=== PATIENT | male | born 1950 | race Caucasian/White ===

== ENCOUNTER 2019-06-02 09:17 | Outpatient (CLI) | payer MEDICARE, SELFPAY ==
[2019-06-02 13:17] LABS: Alanine Aminotransferase 15 U/L (4-50); Albumin Level 3.4 g/dL (3.5-5.1); Alkaline Phosphatase 54 U/L (38-126); Aspartate Amino Transferase 20 U/L (17-59); Bilirubin,Total 0.4 mg/dL (0.2-1.3); Blood Urea Nitrogen 24 mg/dL (9-20); Calcium 8.8 mg/dL (8.4-10.2); Carbon Dioxide 28 mmol/L (22-30); Chloride 102 mmol/L (98-107); Cholesterol 114 mg/dL (0-200); Estimated Glomerular Filt Rate 54; Glucose 92 mg/dL (75-110); HDL Direct 39 mg/dL; Potassium 4.8 mmol/L (3.4-5.0); Sodium 137 mmol/L (137-145); Triglycerides 48 mg/dL (<150)
[2019-06-02 13:18] LABS: Hemoglobin A1C 5.6 % (<5.7)
[2019-06-02 13:28] LABS: LDL Cholesterol Direct 62 mg/dL
== END 2019-06-02 09:18 | disposition home or self-care (01) ==
LOC: ANHWCLAB 09:26
PROVIDERS: PCP Family Medicine; Visit Provider Family Medicine
DX: I10 Essential (primary) hypertension (principal); R73.03 Prediabetes; E78.5 Hyperlipidemia, unspecified; E03.9 Hypothyroidism, unspecified
CPT/HCPCS: 36415; 80053; 80061; 83036; 84443

== ENCOUNTER 2019-12-10 09:55 | Outpatient (CLI) | payer MEDICARE, SELFPAY ==
--- NOTE | 2019-12-10 10:11 | ECHO_ITS ---
Patient Info Name: Bertrand Jacobs Age: 69 years : 1950 Gender: Male Ht: 74 in Wt: 315 lbs BSA: 2.79 m2 HR: 66 bpm BP: 162 / 85 mmHg Heart Rhythm: Sinus Rhythm Technical Quality: Fair Exam Date: 12/10/2019 10:20 AM Exam Location: [facility] Pulmonary Patient Status: Outpatient Admit Date: 12/10/2019 Staff Ordering Physician: Bridget Gamble NP Cut Out Machine Operator: Gil Rowell RDCS Attending Provider: Bridget Gamble NP Referring Physician: Mavis GAY; Exam Type: CA echo doppler color flow Study Info Indications R60.0 - Localized edema Complete two-dimensional, color flow and Doppler transthoracic echocardiogram is performed. History/Risk Factors Localized edema, palpitations, HTN. Summary 1. Complete two-dimensional, color flow and Doppler transthoracic echocardiogram is performed. 2. Left ventricular chamber dimension is normal. 3. Left ventricular systolic function is normal, estimated at 65-70%. 4. There is moderately increased left ventricular wall thickness. 5. The left ventricular diastolic function is grade I diastolic dysfunction. 6. E/e' 8 is minimally elevated. 7. There is mild aortic valve sclerosis. 8. There is trace tricuspid valve regurgitation. 9. No pulmonary hypertension, estimated pulmonary arterial systolic pressure is 30 mmHg. Left Ventricle E/e' 8 is minimally elevated. Left ventricular chamber dimension is normal. Left ventricular systolic function is normal, estimated at 65-70%. There is moderately increased left ventricular wall thickness. The left ventricular diastolic function is grade I diastolic dysfunction. Right Ventricle Right ventricular systolic function is normal based on normal TAPSE 2.0 cm. Right ventricular chamber dimension is not well visualized. Left Atria Left atrial chamber dimension is normal. Right Atria Right atrial chamber dimension is normal. Aortic Valve The aortic valve is trileaflet. There is mild aortic valve sclerosis. There is no aortic valve stenosis. There is no aortic valve regurgitation. Pulmonic Valve There is no pulmonic regurgitation. Mitral Valve There is no mitral valve stenosis. There is no mitral valve regurgitation. Tricuspid Valve There is trace tricuspid valve regurgitation. No pulmonary hypertension, estimated pulmonary arterial systolic pressure is 30 mmHg. Pericardium/Pleural There is no pericardial effusion. Inferior Vena Cava Normal inferior vena cava with >50% collapse upon inspiration consistent with normal right atrial pressure, 5 mmHg. Aorta The aortic root size at the sinus of Valsalva is normal. Left Ventricular Outflow Tract Name Value Normal LVOT 2D LVOT Diameter 2.2 cm LVOT Doppler LVOT Peak Gradient 4 mmHg LVOT Mean Gradient 2 mmHg LVOT VTI 20 cm LVOT VTI/AV VTI Ratio 0.6 LVOT Stroke Volume 75 ml LVOT CO 5.1 l/min LVOT CI 1.8 l/min/m2
== END 2019-12-10 09:56 | disposition home or self-care (01) ==
PROVIDERS: PCP Family Medicine; Visit Provider Nurse Practitioner Family
DX: R06.00 Dyspnea, unspecified (principal); R60.0 Localized edema; I35.8 Other nonrheumatic aortic valve disorders
CPT/HCPCS: 93306

== ENCOUNTER 2020-01-13 10:45 | Outpatient (CLI) | payer MEDICARE, SELFPAY ==
[2020-01-13 11:29] LABS: Hematocrit 40.2 % (42.0-52.0); Hemoglobin 13.6 g/dL (14.0-18.0); Mean Corpuscular HGB Conc 33.8 g/dl (32-36); Mean Corpuscular Hemoglobin 31.1 pg (26-34); Mean Platelet Volume 10.7 fl (7.4-10.4); Platelet Count Result 179 k/mm3 (150-375); Red Blood Count 4.37 M/mm3 (4.6-6.20); White Blood Count 8.7 K/mm3 (4.5-10.0)
[2020-01-13 11:38] LABS: Hemoglobin A1C 5.4 % (<5.7)
[2020-01-13 11:39] LABS: Alanine Aminotransferase 17 U/L (4-50); Albumin Level 3.5 g/dL (3.5-5.1); Alkaline Phosphatase 55 U/L (38-126); Anion Gap 6 mmol/L (8-16); Aspartate Amino Transferase 21 U/L (17-59); Bilirubin,Total 0.7 mg/dL (0.2-1.3); Blood Urea Nitrogen 20 mg/dL (9-20); Carbon Dioxide 29 mmol/L (22-30); Chloride 103 mmol/L (98-107); Cholesterol 116 mg/dL (0-200); Estimated Glomerular Filt Rate 54; Glucose 111 mg/dL (75-110); HDL Direct 40 mg/dL; Potassium 4.3 mmol/L (3.4-5.0); Sodium 138 mmol/L (137-145); Triglycerides 68 mg/dL (<150)
[2020-01-13 11:50] LABS: LDL Cholesterol Direct 57 mg/dL
[2020-01-13 12:09] LABS: Vitamin D 25 Hydroxy 42.2 ng/mL
[2020-01-13 12:11] LABS: Prostate Specific Antigen 0.3 ng/mL (< OR = 4.0)
== END 2020-01-13 10:46 | disposition home or self-care (01) ==
LOC: ANHLAB 10:47
PROVIDERS: PCP Family Medicine; Visit Provider Nurse Practitioner Family
DX: E03.9 Hypothyroidism, unspecified (principal); E11.9 Type 2 diabetes mellitus without complications; E55.9 Vitamin D deficiency, unspecified; E78.5 Hyperlipidemia, unspecified; I10 Essential (primary) hypertension; Z12.5 Encounter for screening for malignant neoplasm of prostate; R60.0 Localized edema; R06.00 Dyspnea, unspecified
CPT/HCPCS: 36415; 80048; 80053; 80061; 82306; 83036; 84153; 84443; 85025; 85027; 86850; 86900; 86901; 93005; G0103

== ENCOUNTER 2020-07-24 10:07 | Outpatient (CLI) | payer MEDICARE, SELFPAY ==
[2020-07-24 10:32] LABS: Hematocrit 37.4 % (42.0-52.0); Hemoglobin 12.2 g/dL (14.0-18.0); Mean Corpuscular HGB Conc 32.6 g/dl (32-36); Mean Corpuscular Hemoglobin 29.6 pg (26-34); Mean Corpuscular Volume 90.8 fl (80-100); Mean Platelet Volume 9.7 fl (7.4-10.4); Platelet Count Result 191 k/mm3 (150-375); Red Blood Count 4.12 M/mm3 (4.6-6.20); Red Cell Distribution Width 13.8 % (11.5-14.5); White Blood Count 7.6 K/mm3 (4.5-10.0)
[2020-07-24 11:04] LABS: Alanine Aminotransferase 12 U/L (4-50); Albumin Level 3.3 g/dL (3.5-5.1); Alkaline Phosphatase 55 U/L (38-126); Anion Gap 1 mmol/L (8-16); Aspartate Amino Transferase 18 U/L (17-59); Bilirubin,Total 0.4 mg/dL (0.2-1.3); Blood Urea Nitrogen 24 mg/dL (9-20); Carbon Dioxide 30 mmol/L (22-30); Chloride 106 mmol/L (98-107); Cholesterol 108 mg/dL (0-200); Estimated Glomerular Filt Rate 54; Glucose 99 mg/dL (75-110); HDL Direct 43 mg/dL; Potassium 4.4 mmol/L (3.4-5.0); Sodium 137 mmol/L (137-145); Triglycerides 41 mg/dL (<150)
[2020-07-24 11:15] LABS: LDL Cholesterol Direct 50 mg/dL
[2020-07-24 11:37] LABS: Hemoglobin A1C 5.6 % (<5.7)
[2020-07-24 19:08] LABS: Prostate Specific Antigen 0.4 ng/mL (< OR = 4.0)
== END 2020-07-24 10:08 | disposition home or self-care (01) ==
PROVIDERS: PCP Family Medicine; Visit Provider Nurse Practitioner Family
DX: I10 Essential (primary) hypertension (principal); Z12.5 Encounter for screening for malignant neoplasm of prostate; E78.5 Hyperlipidemia, unspecified; E11.9 Type 2 diabetes mellitus without complications; E03.9 Hypothyroidism, unspecified
CPT/HCPCS: 36415; 80053; 80061; 83036; 84153; 84443; 85027; G0103

== ENCOUNTER 2021-01-03 10:34 | Outpatient (CLI) | payer MEDICARE, SELFPAY ==
[2021-01-03 10:55] LABS: Basophils Absolute Auto 0.1 K/mm3 (0.0-0.1); Basophils Percent Auto 0.9 % (0.2-1.2); Eosinophils Absolute Auto 0.9 K/mm3 (0-0.3); Eosinophils Percent Auto 12.6 % (0-4.4); Hematocrit 39.7 % (42.0-52.0); Hemoglobin 13.1 g/dL (14.0-18.0); Immature Granulocyte Absolute 0.01 K/mm3 (0.00-0.031); Immature Granulocyte Percent A 0.1 % (0-0.5); Lymphocytes Absolute Auto 1.65 K/mm3 (0.9-3.2); Lymphocytes Percent Auto 24.5 % (18.3-44.2); Mean Corpuscular Hemoglobin 30.3 pg (26-34); Mean Corpuscular Volume 91.9 fl (80-100); Mean Platelet Volume 10.1 fl (7.4-10.4); Monocytes Absolute Auto 0.6 K/mm3 (0.1-0.6); Monocytes Percent Auto 8.6 % (2.6-8.5); Neutrophils Absolute Auto 3.6 K/mm3 (1.3-6.7); Neutrophils Percent Auto 53.3 % (45.5-73.1); Platelet Count Result 201 k/mm3 (150-375); Red Blood Count 4.32 M/mm3 (4.6-6.20); Red Cell Distribution Width 13.6 % (11.5-14.5); White Blood Count 6.7 K/mm3 (4.5-10.0)
[2021-01-03 11:09] LABS: Alanine Aminotransferase 15 U/L (4-50); Albumin Level 3.5 g/dL (3.5-5.1); Alkaline Phosphatase 53 U/L (38-126); Anion Gap 5 mmol/L (8-16); Aspartate Amino Transferase 20 U/L (17-59); Bilirubin,Total 0.6 mg/dL (0.2-1.3); Blood Urea Nitrogen 27 mg/dL (9-20); Calcium 8.9 mg/dL (8.4-10.2); Carbon Dioxide 25 mmol/L (22-30); Chloride 107 mmol/L (98-107); Cholesterol 123 mg/dL (0-200); Estimated Glomerular Filt Rate 54; Glucose 104 mg/dL (65-110); HDL Direct 47 mg/dL; Potassium 4.4 mmol/L (3.4-5.0); Sodium 137 mmol/L (137-145); Triglycerides 42 mg/dL (<150)
[2021-01-03 11:23] LABS: Creatinine Urine 309.8 mg/dL
[2021-01-03 11:28] LABS: MALB Creatinine Ratio 34.2 mg/g (0-30); Microalbumin Urine Random 105.9 mg/L (0-16.7)
[2021-01-03 11:28] LABS: LDL Cholesterol Direct 58 mg/dL
[2021-01-03 12:07] LABS: Hemoglobin A1C 5.6 % (<5.7)
== END 2021-01-03 10:35 | disposition home or self-care (01) ==
LOC: ANHLAB 10:36
PROVIDERS: PCP Family Medicine; Visit Provider Nurse Practitioner Family
DX: I10 Essential (primary) hypertension (principal); E78.5 Hyperlipidemia, unspecified; E11.9 Type 2 diabetes mellitus without complications; E03.9 Hypothyroidism, unspecified
CPT/HCPCS: 36415; 80053; 80061; 82043; 83036; 84443; 85025

== ENCOUNTER 2021-01-22 12:02 | Outpatient (CLI) | payer MEDICARE, SELFPAY ==
--- NOTE | 2021-01-22 12:51 | ECG_ITS ---
Measurements Intervals [place] Rate: 70 P: 57 NH: 160 QRS: 0 QRSD: 93 T: 20 QT: 396 QTc: 430 Interpretive Statements SINUS RHYTHM DELAYED PRECORDIAL R/S TRANSITION BASELINE ARTIFACT- I, II, III, AVR, AVL, AVF, V5 BORDERLINE ECG Electronically Signed On 01-22-2021 14:46:06 BOX ANNEALER by Jose Manuel Matta D.O.
[2021-01-22 13:57] LABS: Urine Cotinine NEGATIVE
[2021-01-22 14:16] LABS: Prothrombin Time 13.4 Seconds (11.1-14.7)
[2021-01-22 14:17] LABS: Partial Thromboplastin Time 22.4 SECONDS (22.3-36.8)
[2021-01-22 14:19] LABS: Add Urine Microscopic? YES; Appearance Urine Clear (Clear); Bilirubin Urine Negative (Negative); Blood Urine Negative (Negative); Color Urine Yellow (Yellow); Glucose Urine UA Negative (Negative); Ketones Urine Negative (Negative); Leukocyte Esterase Ur Negative LEU/UL (Negative); Mucus Urine Rare /lpf; Nitrate Urine Negative (Negative); Protein Urine 1+ mg/dL (Negative); RBC Urine 0-2 /hpf (0-2); Specific Grav Ur 1.016 (1.001-1.035); Squamous Epithelial Cell Urine Rare /hpf (Few); Urobilinogen Urine Negative mg/dL (<2.0); WBC Urine 0-3 /hpf
== END 2021-01-22 12:03 | disposition home or self-care (01) ==
LOC: ANHSURGERY 12:04
PROVIDERS: PCP Nurse Practitioner Family; Visit Provider Orthopaedic Surgery
DX: M17.11 Unilateral primary osteoarthritis, right knee (principal); Z01.818 Encounter for other preprocedural examination; R94.31 Abnormal electrocardiogram [ECG] [EKG]
CPT/HCPCS: 80307; 81001; 85610; 85730; 87081; 93005

== ENCOUNTER 2021-01-30 09:49 | Outpatient (CLI) | payer MEDICARE, SELFPAY ==
--- NOTE | ~2021-01-30 | NM_ITS ---
EXAMINATION: NM china stress w perfusion DATE: 01/30/2021 16:21 INDICATION: Abnormal electrocardiogram TECHNIQUE: Rest images were obtained following intravenous administration of 9 mCi Tc99m tetrofosmin (Myoview). The patient was infused intravenously with Lexiscan (Regadenoson). Then, 28 mCi Tc99m tetr ofosmin (Myoview) was administered intravenously, and stress images were obtained. Data was reconstru cted into short axis and horizontal and vertical long axis SPECT images. Gated SPECT images were also obtained. COMPARISON: None. FINDINGS: There is no definite reversible or fixed perfusion abnormality to suggest ischemia or infar ction. There is normal left ventricular chamber size, wall motion and ejection fraction. Left ventr icular ejection fraction measures 57%. IMPRESSION: 1. Normal myocardial perfusion at rest and during stress. 2. Left ventricular ejection fraction measuring 57%. Reviewed, dictated and finalized at location A. LTY WORKER
--- NOTE | 2021-01-30 10:02 | EST_ITS ---
Patient Info Name: Bertrand Jacobs Age: 70 years : 1950 Gender: Male Ht: 75 in Wt: 296 lbs BSA: 2.71 m2 HR: 61 bpm BP: 133 / 65 mmHg Heart Rhythm: Sinus Rhythm Exam Date: 01/30/2021 11:02 AM Exam Location: [facility] Stress Patient Status: Outpatient Admit Date: 01/30/2021 Staff Ordering Physician: Bridget Gamble NP Attending Provider: Bridget Gamble NP Exercise Technologist: Tiana Johnson CT Exercise Physician: Jose Manuel Matta DO Exam Type: CA stress china w NM Study Info Indications Z01.810 - Encounter for preprocedural cardiovascular examination R94.31 - Abnormal electrocardiogram ECG EKG A regadenoson stress test was performed. Summary 1. 1. Negative lexiscan stress test for ischemic ST changes by ECG criteria. 2. 2. Stable hemodynamics throughout the test. 3. 3. Nuclear scan to follow and will be reported separately. Please correlate with it. 4. 4. Patient informed of the above results. Protocol: Lexiscan Stress ECG Details Stage: REST Duration (min): 1 min : 41 sec HR (bpm): 62 SBP (mmHg): 133 DBP (mmHg): 65 Stage: REST Duration (min): 11 min : 18 sec HR (bpm): 67 SBP (mmHg): 133 DBP (mmHg): 65 Stage: STAGE 1 Duration (min): 1 min : 0 sec HR (bpm): 76 SBP (mmHg): 148 DBP (mmHg): 77 Stage: RECOVERY Duration (min): 1 min : 0 sec HR (bpm): 93 SBP (mmHg): 148 DBP (mmHg): 77 Stage: RECOVERY Duration (min): 2 min : 0 sec HR (bpm): 86 SBP (mmHg): 148 DBP (mmHg): 77 Stage: RECOVERY Duration (min): 3 min : 0 sec HR (bpm): 83 SBP (mmHg): 140 DBP (mmHg): 73 Stage: RECOVERY Duration (min): 3 min : 16 sec HR (bpm): 84 SBP (mmHg): 140 DBP (mmHg): 73 Rest HR: 67 bpm Peak HR: 94 bpm Rest Sys BP: 133 mmHg Peak Sys BP: 148 mmHg Max Pred HR: 148 bpm % Max Pred HR: 64 % Target HR: 126 bpm Max RPP: 13,912 bpm*mmHg Termination Reason: Completed protocol Cardiac Symptoms: Shortness of breath Total Time: 1 min : 0 sec Rest Castanon BP: 65 mmHg Peak Castanon BP: 77 mmHg Total Dose: 0.4 mg Resting ECG Sinus rhythm. Stress ECG No ST changes. Arrhythmias Occasional PVC's. Report Signatures
== END 2021-01-30 09:50 | disposition home or self-care (01) ==
LOC: ANHCARD 09:54
PROVIDERS: Visit Provider Nurse Practitioner Family
DX: R94.31 Abnormal electrocardiogram [ECG] [EKG] (principal); Z01.810 Encounter for preprocedural cardiovascular examination
CPT/HCPCS: 78452; 93017; A9502; J2785

== ENCOUNTER 2021-02-22 16:23 | Observation (INO) | payer MEDICARE, SELFPAY ==
[2021-01-22 11:55] VITALS: BMI 38.0
--- NOTE | 2021-01-22 12:32 | PC.NURSE ---
Report to the Outpatient Waiting Room, entrance under the green pavilion located off [facility], at time __0830 on date _02/07/21 . OR Time: __1030 . - You and your visitor will be asked a series of questions to screen for COVID 19 for your protection. - A mask is required within the hospital. - Only one visitor is allowed at this time. Patient visitors will be guided where to wait when not with patient. Preoperative COVID Testing Requirements: No COVID Test needed if: (proof is required; if not received patient will have Rapid Test prior to entry) - Patient has received COVID Vaccine at least 14 days prior to procedure date or - Patient has positive COVID test result within last 90 days of surgery date. COVID Test needed if above criteria is not met If not COVID vaccinated a COVID test must be conducted within 72 hours of surgery and patient is asked to isolate self from time of testing until procedure. You will go to the [employer] [facility] Testing Site for your COVID testing. The [employer] [facility] Testing site is located at the corner of [address] [facility]. You will only be called if COVID results are positive and your surgeon may reschedule your elective surgery date. Patients may have clear liquids (water, carbonated beverages, clear teas, apple juice) until 3 hours prior to surgery with a maximum of 20 ounces. - No food from midnight until time of surgery - Infants may have breast milk until 4 hours before surgery, formula 6 hours prior to surgery. - Children will be allowed to drink immediately following surgery. If applicable, please bring a bottle or sippy cup to assist with drinking. Juice, water, soda, and popsicles are readily available. For infants on formula, please bring formula the day of surgery. Pacifiers are allowed. Take the following medications with a SIP of water the morning of surgery: _LEVOTHYROXINE Medications to discontinue per physician __ASPIRIN PT STATES 7 DAYS PRE OP PER DR LEWIS. ALL VITAMINS AND SUPPLEMENTS 3 DAYS PRE OP Date to take last dose___02/03/21 Please no make-up, nail indian, hairspray, perfume, deodorant, or body powder the day of surgery. No jewelry (including any body piercings) or valuables the day of surgery, leave them at home. Please take a shower or bath the night before, or the morning of, surgery with an antibacterial soap. Wear comfortable, loose fitting clothing. Children are encouraged to wear pajamas. - Jewelry must be removed prior to entering the operating room. Rings and piercings that are not removed may be cut off. - The hospital will not accept responsibility for valuables. - Please leave all valuables, including medications, at home the day of surgery. If you are going home after surgery, a licensed hazmat tanker driver must drive you home. - NO public transportation without another adult. - We recommend that an adult stay with you for 24 hours following discharge. - We also recommend that you do not drive, make important decision, drink alcoholic beverages, or take any drugs that were not prescribed by your health care provider for at least 24 hours after your discharge time. For Pediatric surgeries, we recommend two adults accompany the child home (only one inside the building at this time). Follow any additional instructions given to you from your surgeon. VERBAL instructions given to _PATIENT and asked if any additional questions and then verbalized understanding. Patient advised to call surgeon office or pre surgery nurse liaison [phone] if any additional questions.
[2021-01-22 12:49] VITALS: BP 137/76; PULSE 70; RESP 16; TEMP 36.8; O2SAT 100
--- NOTE | 2021-02-06 13:55 | SUR.PREOP ---
patient contacted and informed case cancelled for 02/07/2021 instructed to call office for new surgery date and time and to ask about aspirin being held or restarted, understanding stated
--- NOTE | 2021-02-12 10:07 | PC.NURSE ---
Report to the Outpatient Waiting Room, entrance under the green pavilion located off [facility], at time _0830 on date _02/21/21 . OR Time: __1030 . - You and your visitor will be asked a series of questions to screen for COVID 19 for your protection. - A mask is required within the hospital. - Only one visitor is allowed at this time. Patient visitors will be guided where to wait when not with patient. Preoperative COVID Testing Requirements: No COVID Test needed if: (proof is required; if not received patient will have Rapid Test prior to entry) - Patient has received COVID Vaccine at least 14 days prior to procedure date or - Patient has positive COVID test result within last 90 days of surgery date. COVID Test needed if above criteria is not met If not COVID vaccinated a COVID test must be conducted within 72 hours of surgery and patient is asked to isolate self from time of testing until procedure. You will go to the [employer] [facility] Testing Site for your COVID testing. The [employer] [facility] Testing site is located at the corner of [address] [facility]. You will only be called if COVID results are positive and your surgeon may reschedule your elective surgery date. Patients may have clear liquids (water, carbonated beverages, clear teas, apple juice) until 3 hours prior to surgery with a maximum of 20 ounces. - No food from midnight until time of surgery - Infants may have breast milk until 4 hours before surgery, formula 6 hours prior to surgery. - Children will be allowed to drink immediately following surgery. If applicable, please bring a bottle or sippy cup to assist with drinking. Juice, water, soda, and popsicles are readily available. For infants on formula, please bring formula the day of surgery. Pacifiers are allowed. Take the following medications with a SIP of water the morning of surgery: ___LEVOTHYROXINE Medications to discontinue per physician ____ALL VITAMINS AND SUPPLEMENTS 3 DAYS PRE OP. ASA PER DR LEWIS Date to take last dose Please no make-up, nail portuguese, hairspray, perfume, deodorant, or body powder the day of surgery. No jewelry (including any body piercings) or valuables the day of surgery, leave them at home. Please take a shower or bath the night before, or the morning of, surgery with an antibacterial soap. Wear comfortable, loose fitting clothing. Children are encouraged to wear pajamas. - Jewelry must be removed prior to entering the operating room. Rings and piercings that are not removed may be cut off. - The hospital will not accept responsibility for valuables. - Please leave all valuables, including medications, at home the day of surgery. If you are going home after surgery, a licensed line haul truck driver must drive you home. - NO public transportation without another adult. - We recommend that an adult stay with you for 24 hours following discharge. - We also recommend that you do not drive, make important decision, drink alcoholic beverages, or take any drugs that were not prescribed by your health care provider for at least 24 hours after your discharge time. For Pediatric surgeries, we recommend two adults accompany the child home (only one inside the building at this time). Follow any additional instructions given to you from your surgeon. Telephone instructions given to _PATIENT and asked if any additional questions and then verbalized understanding. Patient advised to call surgeon office or pre surgery nurse liaison [phone] if any additional questions.
[2021-02-21] VITALS (14 sets, daily range): BP systolic 115–167; BP diastolic 69–101; PULSE 70–100; RESP 12–20; TEMP 35.9–36.9; O2SAT 97–100
--- NOTE | 2021-02-21 07:20 | WPDHPUPDATE1 ---
History and Physical Update Update Date/Time: 02/21/21 07:20 History and Physical has been reviewed, including an updated exam of the patient. There are NO changes in the patient's condition. Risks, benefits, and alternatives have been discussed and questions answered. Patient agrees to proceed with procedure.
[2021-02-21] MEDS: ACETAMINOPHEN 500 MG TABLET 1000 MG PO (09:07)
--- NOTE | 2021-02-21 09:10 | WPDANESEPPF ---
Anes - Initial Pre Proc Eval Procedure: Operation Date: 02/21/21 10:30 Proposed Procedures p Right Total Knee Arthroplasty - Jassi Gomez MD Date/Time: 02/21/21 09:10 Surgeon: Jassi Gomez MD Pre Op Diagnosis: right knee djd Patient Data Age: 71 Gender: M Height: 1.88 m Weight: 134.6 kg Last Vital Signs Temp 36.8 C 01/22/21 12:49 Pulse 70 01/22/21 12:49 Resp 16 01/22/21 12:49 BP 137/76 01/22/21 12:49 Pulse Ox 100 01/22/21 12:49 Allergies Allergy/AdvReac Type Severity Reaction Status Date / Time No Known Allergies Allergy Verified 02/12/21 10:03 Home Medications Medication Instructions Recorded Confirmed Type calcium carbonate 500 mg-vitamin 1 tablet PO DAILY 03/18/19 02/12/21 History D3 5 mcg (200 unit) tablet niacin 500 mg capsule,extended 500 mg PO QAM 03/18/19 02/12/21 History release levothyroxine 112 mcg tablet 112 mcg PO DAILY #90 tablet 07/04/20 02/12/21 Rx aspirin 325 mg tablet 325 mg PO DAILY 08/18/20 02/12/21 History omega-3 fatty acids 1,000 mg 1,000 mg PO DAILY #90 cap 10/05/20 02/12/21 Rx capsule omeprazole 20 mg capsule,delayed 20 mg PO DAILY #90 cap 12/26/20 02/12/21 Rx release metformin 500 mg tablet 500 mg PO BID #180 tablet 01/03/21 02/12/21 Rx hydrochlorothiazide 12.5 mg tablet 12.5 mg PO DAILY #90 tablet 01/15/21 02/12/21 Rx atorvastatin 40 mg PO HS 01/22/21 02/12/21 History glucos sul [id number] 1 cap PO BID 01/22/21 02/12/21 History [Glucosamine Chondroitin] losartan 25 mg PO QPM 01/22/21 02/12/21 History metoprolol succinate 50 mg PO HS 01/22/21 02/12/21 History tamsulosin 0.4 mg PO QPM 01/22/21 02/12/21 History chlorhexidine gluconate 4 % 1 applic TOPICAL ONCE #237 ml 01/29/21 02/12/21 Rx topical liquid tramadol 50 mg tablet 50 mg PO Q6H PRN #30 tablet 02/08/21 02/12/21 Rx Patient hx anesthesia problems: post op nausea/vomiting Family hx anesthesia problems: none Results Review: All pre-operative results and documents have been reviewed as part of the pre-operative evaluation. FORMERLY [facility], [facility] Past Medical History Medical History BMI greater than 40 Essential (primary) hypertension Hyperlipidemia Hypothyroid Knee joint effusion Nausea after anesthesia Right knee pain Screening for AAA (abdominal aortic aneurysm) (~12/2009) Type 2 diabetes mellitus without complications Urinary frequency Vision loss Surgical History Surgical History H/O colonoscopy (~02/2018) History of colonoscopy with polypectomy (~02/18/18) Dr Mosqueda - Mejia in 02/2023 History of discectomy (~1976) L4-L5 removed History of left knee replacement (~01/2006) Family History Family History Father Family history of diabetes mellitus in first degree relative Acute myocardial infarction Mother Cerebrovascular accident Social History Social History Smoking packs per day: 2 Smoking cigarettes per day: 40.0 Years smoked: 30 Smoking pack-years: 60.00 Tobacco type: cigarettes Smoking end date: 03/10/87 Additional smoking assessment comments: DENIES ANY FORM OF TOBACCO USE Alcohol intake: current Drinks per week: 1 Substance use: current Substance use type: marijuana Living arrangements: alone Spiritual care concerns: No Anes - Eval Final PreProcedure Day of Procedure 02/21/21 09:10 Patient weight: obese Heart: regular rate and rhythm Lungs: decreased breath sounds Airway: Mallampati scale class II Neurological: alert and oriented Last oral intake: >/= 8 hours ASA classification: III Emergent: no Anesthetic plan: proceed Anesthesia type and monitoring: general LMA and standard monitoring Results Review: All pre-operative results and documents have been reviewed as part of the pre-oper
[2021-02-21] MEDS: LACTATED RINGERS 1,000 ML 30 ML IV CONT ×2 (09:20→13:06)
[2021-02-21 09:50] LABS: Glucose Point of Care 99 mg/dl (65-105)
[2021-02-21] MEDS: TRANEXAMIC ACID 1,000MG/ISO100 1,000 MG/100 ML BAG 200 MG IVPB (10:12)
--- NOTE | 2021-02-21 10:39 | WPDANESPNB ---
Anes - Peripheral Nerve Block Date/Time: 02/21/21 10:39 I have discussed with the patient/family/POA the placement of a peripheral nerve block for post-operative pain management, including associated risks, benefits, complications, and side effects. Alternative methods of post-operative analgesia were detailed. Questions were solicited and answers provided to the satisfaction of the patient/family/POA. Time-Out: A pre-procedural Time-Out was completed immediately before starting the procedure and confirmed: Patient Identification, Site, Procedure, Patient Position and the Availability of Requisite Equipment. Clinical Indications: Acute post-operative pain management requested by the operative surgeon. Nerve Block Insertion Note Anes-nerve block: adductor canal right Patient position: supine Skin prep: chlorhexidine Needle: 22 gauge, stimulating, insulated echogenic needle. Needle length: 80 mm Technique: ultrasound Technique comment: mid2mg [id number] Injectate: bupivacaine 0.5% with epi 5 mcg/ml (30ml no epi) and dexamethasone (mg) (4) Observations: tolerated well Complications: none Procedure start time:: 8 Procedure end time:: 1034
[2021-02-21] MEDS: ceFAZolin 3 GM/D5W 100 ML 100 ML IVPB (11:03)
[2021-02-21] MEDS: GENTAMICIN BONE CEMENT REFOBACIN 1 EACH TOPICAL (11:45)
[2021-02-21] MEDS: TRANEXAMIC ACID 1,000 MG/10 ML AMPUL 1000 MG IV PUSH (12:30)
--- NOTE | 2021-02-21 13:21 | W.PM.PROC2 ---
Procedure Note - Detailed Date of Procedure 02/21/21 Pre-op Diagnosis right knee djd Post-op Diagnosis same Procedure Performed R TKA Surgeon Jassi Gomez MD Anesthesia general Description of Procedure THE RIGHT KNEE WAS PREPPED AND DRAPED IN THE STERILE FASHION. THERE WAS A 10 DEGREE FLEXION CONTRACTURE. A MIDLINE SKIN INCISION WAS MADE. A MEDIAL PARAPATELLAR ARTHROTOMY WAS MADE. THE PATELLA WAS EVERTED. THERE WAS TRICOMPARTMENT DJD. THERE WAS MINIMAL PATELLA DJD. AN INTRAMEDULLARY WILLIAM WAS PLACED IN THE FEMUR. A DISTAL FEMORAL CUT WAS MADE IN 5 DEGREES OF VALGUS REMOVING APPROXIMATELY 9 MM OF BONE FROM THE DISTAL FEMUR. THE FEMUR WAS SIZED TO 67.5. A 67.5 FEMORAL CUTTING BLOCK WAS PLACED IN 3 DEGREES OF EXTERNAL ROTATION AND IN ALIGNMENT WITH TAISHA'S LINE AND THE TRANSEPICONDYLAR AXIS. ANTERIOR POSTERIOR AND CHAMFER CUTS WERE MADE. THE CUTS WERE EXCELLENT. NEXT AN INTRAMEDULLARY CUTTING GUIDE WAS PLACED IN THE TIBIA. A TRANS TIBIAL CUT WAS MADE ALONG THE LONG AXIS OF THE TIBIA. APPROXIMATELY 10 MM OF BONE WAS REMOVED FROM THE HIGH SIDE OF THE TIBIA. THE TIBIA WAS THEN PLANED TO A SMOOTH SURFACE. POSTERIOR FEMORAL OSTEOPHYTES WERE REMOVED FROM THE FEMORAL CONDYLES. A 79 TIBIAL TRIAL WAS PLACED IN ALIGNMENT WITH THE 1/3 MEDIAL ASPECT OF THE TIBIAL TUBERCLE. THEN A 67.5 FEMORAL TRIAL COMPONENT WAS PLACED. BOTH HAD EXCELLENT FITS. EVENTUALLY A 10 MM CR POLYETHYLENE TRIAL COMPONENT WAS PLACED. THE KNEE WAS TAKEN THROUGH A RANGE OF MOTION. THE KNEE CAME OUT TO FULL EXTENSION. THERE WAS NO ABNORMAL TILT TO THE PATELLA. THERE WAS GOOD A/P AND VARUS/VALGUS STABILITY. THERE WAS NO EXCESSIVE ROLL BACK WITH FLEXION. THE TRIAL COMPONENTS WERE REMOVED. THEN A 67.5 FEMORAL COMPONENT AND 79 TIBIAL COMPONENT WITH A 10 CR POLYETHYLENE COMPONENT WERE CEMENTED INTO PLACE. ONCE THE CEMENT WAS HARD THE KNEE WAS TAKEN THROUGH A ROM AGAIN AND FOUND TO BE STABLE WITH NO PATELLA TILT NO EXCESSIVE ROLL BACK WITH FLEXION AND GOOD STABILITY WITH COMPLETE AND FULL EXTENSION. THE KNEE WAS IRRIGATED WITH STERILE BETADINE AND WATER FOR ABOUT 3 MINUTES. THE BLEEDERS WERE CAUTERIZED. THE ARTHROTOMY WAS REPAIRED WITH NUMBER 1 VICRYL. THE SUB CUTANEOUS LAYER WITH 2-0 VICRYL AND THE SKIN WITH LINDA. THE WOUND WAS WASHED AND A STERILE DRESSING WAS APPLIED. PATIENT WAS EXTUBATED. Estimated Blood Loss -150.0 Pathology none sent Complications No immediate complications Condition stable Disposition PACU
[2021-02-21] MEDS: fentaNYL CITRATE INJ (*CRX) 100 MCG/2 ML VIAL 25 MCG IV PUSH ×3 (13:45→14:08)
--- NOTE | 2021-02-21 15:03 | ADMGEN ---
This patient, Bertrand Jacobs, was admitted to [facility] Surgery-2. Patient/family oriented to hospital policies and general routines including ID bracelet, bed and alarms, visiting hours, pain management, procedures, bathroom and other care routines, personal items, smoking policy, room service/diet, and visiting hours. Information on how to activate the Rapid Response Team has been discussed. Patient/Family are encouraged to report perceived risks to care and to ask questions if they do not understand what they are told or what they should do.
[2021-02-21] MEDS: oxyCODONE/ACETAMINOPHEN (*CRX) 5-325 MG TABLET 1 TABLET PO (15:20)
[2021-02-21] MEDS: SODIUM CHLORIDE 0.9% IV 1,000 ML 125 ML IV CONT (15:43)
[2021-02-21] MEDS: ceFAZolin 2 GM/D5W 50 ML 2 GM/50 ML BAG IVPB ×2 (15:43→23:30)
--- NOTE | 2021-02-21 16:32 | PC.NURSE ---
1500 - Dr. Gomez at beside talking with patient
[2021-02-21 16:43] LABS: Glucose Point of Care 141 mg/dl (65-105)
[2021-02-21] MEDS: SENNA/DOCUSATE SODIUM TABLET 2 TAB PO (16:43)
[2021-02-21] MEDS: metFORMIN HCL 500 MG TABLET PO (16:43)
[2021-02-21] MEDS: TAMSULOSIN HCL 0.4 MG CAPSULE PO (17:18)
[2021-02-21] MEDS: LOSARTAN POTASSIUM 25 MG TABLET PO (17:18)
[2021-02-21] MEDS: ATORVASTATIN 40 MG TABLET PO (20:10)
[2021-02-21] MEDS: oxyCODONE HCL (*CRX) 2.5 MG TAB IR 7.5 MG PO (20:10)
[2021-02-21] MEDS: METOPROLOL SUCCINATE EXT REL 50 MG TABCR PO (21:25)
[2021-02-22] VITALS (7 sets, daily range): BP systolic 133–168; BP diastolic 63–86; PULSE 63–82; RESP 14–16; TEMP 35.8–37.1; O2SAT 97–100
--- NOTE | ~2021-02-22 | XR_ITS ---
EXAMINATION: XR knee RT 2V DATE: 02/21/2021 13:29 INDICATION: Right knee arthroplasty. Postop. TECHNIQUE: 2 views of right knee were obtained. COMPARISON: Right knee radiographs 01/22/2021 FINDINGS: There is a total right knee arthroplasty without patellar resurfacing in near-anatomic alig nment. No fracture. There is gas in the knee joint and soft tissues, consistent with recent surgery. There is a small knee joint effusion. Anterior skin tamar are noted. IMPRESSION: 1. Total right knee arthroplasty in near-anatomic alignment. Reviewed, dictated and finalized at location A. ROLLER
[2021-02-22] MEDS: oxyCODONE HCL (*CRX) 2.5 MG TAB IR 7.5 MG PO ×2 (01:21→17:24)
[2021-02-22] MEDS: LEVOTHYROXINE SODIUM 112 MCG TABLET PO (06:40)
[2021-02-22] MEDS: ceFAZolin 2 GM/D5W 50 ML 2 GM/50 ML BAG IVPB (06:50)
[2021-02-22] MEDS: oxyCODONE/ACETAMINOPHEN (*CRX) 5-325 MG TABLET 1 TABLET PO ×3 (06:51→21:00)
[2021-02-22 07:42] LABS: Basophils Percent Auto 0.2 % (0.2-1.2); Eosinophils Percent Auto 0.1 % (0-4.4); Hematocrit 35.3 % (42.0-52.0); Hemoglobin 11.5 g/dL (14.0-18.0); Immature Granulocyte Absolute 0.04 K/mm3 (0.00-0.031); Immature Granulocyte Percent A 0.4 % (0-0.5); Lymphocytes Absolute Auto 1.43 K/mm3 (0.9-3.2); Lymphocytes Percent Auto 13.3 % (18.3-44.2); Mean Corpuscular HGB Conc 32.6 g/dl (32-36); Mean Corpuscular Hemoglobin 30.4 pg (26-34); Mean Corpuscular Volume 93.4 fl (80-100); Mean Platelet Volume 10.2 fl (7.4-10.4); Monocytes Absolute Auto 1.1 K/mm3 (0.1-0.6); Monocytes Percent Auto 10.4 % (2.6-8.5); Neutrophils Absolute Auto 8.2 K/mm3 (1.3-6.7); Neutrophils Percent Auto 75.6 % (45.5-73.1); Platelet Count Result 194 k/mm3 (150-375); Red Blood Count 3.78 M/mm3 (4.6-6.20); Red Cell Distribution Width 13.9 % (11.5-14.5); White Blood Count 10.8 K/mm3 (4.5-10.0)
[2021-02-22 07:45] LABS: Anion Gap 3 mmol/L (8-16); Blood Urea Nitrogen 32 mg/dL (9-20); Calcium 8.4 mg/dL (8.4-10.2); Carbon Dioxide 24 mmol/L (22-30); Chloride 106 mmol/L (98-107); Estimated CRCL calculation 63 ml/min; Estimated Glomerular Filt Rate 50; Glucose 136 mg/dL (65-110); Potassium 3.9 mmol/L (3.4-5.0); Sodium 133 mmol/L (137-145)
--- NOTE | 2021-02-22 09:11 | PM.PNORT ---
Progress Note: A&P Assessment and Plan (1) S/P knee replacement: Qualifiers: Laterality: right Qualified Code(s): Z96.651 - Presence of right artificial knee joint Code(s): Z96.659 - Presence of unspecified artificial knee joint Status: Acute Assessment and Plan: POD #1: Right TKA Continue PT/OT. WBAT. Walker. Slow progress- would beenfit from SNF for Rehab. Prevena Dressing in place. Keep in place x7 days and then apply Mepilex Silver dressing. Pain control. Ice. JARVIS Wrap. JARVIS to be removed prior to discharge. DVT prophylaxis. Increase current daily 325mg Aspirin to BID per Dr. Gomez. SCDs. Incentive Spirometry. Dispo: SNF today pending approval (2) Nausea after anesthesia: Qualifiers: Encounter type: sequela Qualified Code(s): R11.0 - Nausea; T88.59XS - Other complications of anesthesia, sequela Code(s): T88.59XA - Other complications of anesthesia, initial encounter; R11.0 - Nausea Status: Acute Assessment and Plan: Resolved. Subjective Subjective Date/Time Seen: 02/22/21 09:11 Post Op day: 1 Interval history: POD #1: Right ARIC No new complaints. Pain well controlled. Nausea resolved. Uncomfortable being discharged home alone. Would prefer SNF for PT/OT. Review of Systems Review of Systems: All systems reviewed & are unremarkable except as noted in HPI and below Constitutional: Constitutional: Denies fever(s) and Denies headache(s) ENT: Denies headache(s) Cardiovascular: Cardiovascular: Denies chest pain, Denies diaphoresis, Denies palpitations and Denies dyspnea Respiratory: Respiratory: Denies dyspnea Gastrointestinal: Gastrointestinal: Denies abdominal pain, Denies constipation, Denies nausea and Denies vomiting Genitourinary: Genitourinary: Denies dysuria and Reports nocturia Musculoskeletal: Musculoskeletal: Reports arthralgias (Right Knee ) and Reports joint swelling (Right Knee ) Neurologic: Denies headache(s) Endocrine: Endocrine: Denies palpitations Exam Const: General: comfortable and no acute distress Resp: Effort & Inspection: normal respiratory effort Cardio: Rate: regular rate Rhythm: regular rhythm GI: GI Palp: Yes Soft to palpation, No Tenderness to palpation present (GI) and No Guarding due to palpation present (GI) Skin: Wounds: wounds noted (right knee ) Other: Incision c/d/i. Prevena wound VAC dressing in place. No surrounding redness/warmth. No hematoma. Mild ecchymosis. No wound dehiscence Neuro: Cognition (Neuro): normal cognition Other: NV intact. Moves toes. Sensation intact to light touch. +ankle dorsiflexion/plantarflexion. Extrem: Right lower extremity: normal to inspection, knee Details: tenderness (diffuse, mild ) and swelling (diffuse, mild ), lower leg (Negative Jarett's Sign ), ankle (+ankle dorsiflexion/plantarflexion ) Details: normal to inspection and no edema; no tenderness, no swelling and no crepitus and foot (2+ pedal pulses. Moves toes. Sensation intact to light touch ) Details: normal capillary refill Left lower extremity: normal to inspection Psych: Mental Status: mental status grossly normal Objective Data Vital Signs Vital Signs: Vital Signs - 24 hr 02/21/21 13:06 02/21/21 13:15 02/21/21 13:30 Temperature 36.9 C Pulse Rate 79 79 71 Respiratory Rate 17 12 12 Blood Pressure 115/101 H 144/74 H 153/72 H Pulse Oximetry 100 100 100 02/21/21 13:45 02/21/21 14:00 02/21/21 14:15 Temperature Pulse Rate 75 70 73 Respiratory Rate 12 12 14 Blood Pressure 152/70 H 154/77 H 158/74 H Pulse Oximetry 100 97 99 02/21/21 14:30 02/21/21 14:39 02/21/21 14:56 Temperature 35.9 C L Pulse Rate 71 71 75 Respiratory Rate 12 15 16 Blood Pressure 157/79 H 154/81 H 167/80 H Pulse Oximetry 100 100 100 02/21/21 15:26 02/21/21 16:26 02/21/21 20:26 Temperature 36.5 C 36.1 C L 36.6 C Pulse Rate 95 80 100 Respiratory Rate 14 16 18 Blood Pressure 157/77 H 138/69 147/78 H
[2021-02-22] MEDS: ASPIRIN 325 MG TABLET PO (09:49)
[2021-02-22] MEDS: metFORMIN HCL 500 MG TABLET PO ×2 (09:49→16:31)
[2021-02-22] MEDS: NIACIN SA 500 MG TABLET PO (09:50)
[2021-02-22] MEDS: PANTOPRAZOLE 40 MG TABLET PO (09:50)
[2021-02-22] MEDS: hydroCHLOROthiazide 12.5 MG CAPSULE PO (09:50)
--- NOTE | 2021-02-22 10:07 | WPDANESPN ---
Anes - Prog Note Post-Op Date/Time: 02/22/21 10:07 Cardiovascular status: normal Respiratory status: normal Airway patency: baseline Mental status: baseline Post-Op hydration status: normal Vital Signs: Last Vital Signs Temp 36.9 C 02/22/21 04:26 Pulse 63 02/22/21 04:26 Resp 16 02/22/21 04:26 BP 147/63 H 02/22/21 04:26 Pulse Ox 100 02/22/21 04:26 Pain Score (VAS): 0 I/O: Intake & Output 02/21/21 02/22/21 02/22/21 23:59 07:59 15:59 Intake Total 90 50 Balance 90 50 Laboratory Tests 02/22/21 07:15 02/22/21 07:15 02/21/21 02/21/21 02/22/21 09:24 16:41 07:15 WBC 10.8 H RBC 3.78 L Hgb 11.5 L Hct 35.3 L MCV 93.4 MCH 30.4 MCHC 32.6 RDW 13.9 Plt Count 194 MPV 10.2 Immature Gran % (Auto) 0.4 Neut % (Auto) 75.6 H Lymph % (Auto) 13.3 L [place] % (Auto) 10.4 H Eos % (Auto) 0.1 Baso % (Auto) 0.2 Lymph # (Auto) 1.43 [place] # (Auto) 1.1 H Eos # (Auto) 0.0 Baso # (Auto) 0.0 Abs Immat Gran (auto) 0.04 H Absolute Neuts (auto) 8.2 H Absolute Nucleated RBC 0.0 Nucleated RBC % 0.0 Sodium Potassium Chloride Carbon Dioxide Anion Gap BUN Creatinine Estim Creat Clear Calc Estimated GFR Glucose POC Capillary Glucose 141 H Calcium Blood Type B Positive Antibody Screen Negative 02/22/21 07:15 WBC RBC Hgb Hct MCV MCH MCHC RDW Plt Count MPV Immature Gran % (Auto) Neut % (Auto) Lymph % (Auto) [place] % (Auto) Eos % (Auto) Baso % (Auto) Lymph # (Auto) [place] # (Auto) Eos # (Auto) Baso # (Auto) Abs Immat Gran (auto) Absolute Neuts (auto) Absolute Nucleated RBC Nucleated RBC % Sodium 133 L Potassium 3.9 Chloride 106 Carbon Dioxide 24 Anion Gap 3 L BUN 32 H Creatinine 1.40 H Estim Creat Clear Calc 63 Estimated GFR 50 L Glucose 136 H POC Capillary Glucose Calcium 8.4 Blood Type Antibody Screen Post-procedural complaints: none Patient Feedback: Patient satisfied with anesthetic care.
[2021-02-22 14:54] LABS: Glucose Point of Care 133 mg/dl (65-105)
[2021-02-22] MEDS: LOSARTAN POTASSIUM 25 MG TABLET PO (18:21)
[2021-02-22] MEDS: TAMSULOSIN HCL 0.4 MG CAPSULE PO (18:21)
[2021-02-22] MEDS: ATORVASTATIN 40 MG TABLET PO (20:54)
[2021-02-22] MEDS: METOPROLOL SUCCINATE EXT REL 50 MG TABCR PO (20:54)
--- NOTE | 2021-02-22 22:42 | PM.IMCN ---
Assessment and Plan Assessment and plan (1) S/P knee replacement: Qualifiers: Laterality: right Qualified Code(s): Z96.651 - Presence of right artificial knee joint Code(s): Z96.659 - Presence of unspecified artificial knee joint Status: Acute (2) Hypothyroid: Code(s): E03.9 - Hypothyroidism, unspecified Status: Chronic (3) Hyperlipidemia: Code(s): E78.5 - Hyperlipidemia, unspecified Status: Chronic (4) Essential (primary) hypertension: Code(s): I10 - Essential (primary) hypertension Status: Chronic (5) Type 2 diabetes mellitus without complications: Qualifiers: Diabetes mellitus retirement insulin use: without retirement use Qualified Code(s): E11.9 - Type 2 diabetes mellitus without complications Code(s): E11.9 - Type 2 diabetes mellitus without complications Status: Chronic (6) Right knee DJD: Qualifiers: Osteoarthritis type: primary Qualified Code(s): M17.11 - Unilateral primary osteoarthritis, right knee Code(s): M17.11 - Unilateral primary osteoarthritis, right knee Status: Acute Additional Plan # status post right knee replacement 02/21/[address] work with therapy anticipated to go home potentially with home health tomorrow. Added on aspirin 325 mg p.o. twice daily for DVT prophylaxis as per orthopedics. Continue PT OT and follow up with Orthopedics as scheduled # hypertension optimal continue on home medication as ordered # hyperlipidemia home medication # diabetes mellitus type 2 on metformin at home which is resumed blood sugar monitor are at goal # hypothyroidism home medication # CKD stage 3 baseline creatinine 1.3-1.4 continue to monitor # history of left knee replacement in the past # disposition: Refer to go to SNF for rehabilitation and quicker recovery however he passed therapy and is planned to go home. Home health if he qualifies for that case assistant evaluation HPI Data of Consult Consult date: 02/22/21 Requesting Physician: Jassi Gomez MD Primary Care Provider: Christianne Darden MD Consult Narrative Narrative: Bertrand Jacobs is a 71 year old male who presented on 02/21/2021 for elective right total knee replacement. He had a total knee replacement done on the left side in 2005. The surgery went well and he also work with therapy this morning. He is anticipated to go home tomorrow. His pain is well control with the pain medication. He is lives by himself and concerned about how he is going to recover open self at home. No chest pain or shortness of breath he has history of hypertension hypothyroidism and hyperlipidemia along with type 2 diabetes and takes medication regularly all of his medications has been resumed during the hospital stay. His blood pressure is running well along with his blood sugar which is also at goal. Review of Systems Review of Systems: - CONSTITUTIONAL: Denies weight loss, fever and chills. - HEENT: Denies changes in vision and hearing - RESPIRATORY: Denies SOB and cough. - CV: Denies palpitations and CP. - GI: Denies abdominal pain, nausea, vomiting and diarrhea. - : Denies dysuria and urinary frequency. - MSK: Denies myalgia and reports joint pain from surgical site. - SKIN: Denies rash and pruritus. - NEUROLOGICAL: Denies headache and syncope. - PSYCHIATRIC: Denies recent changes in mood. Denies anxiety and depression. All systems reviewed & are unremarkable except as noted in HPI and below PMFSH Past Medical History Medical History BMI greater than 40 Essential (primary) hypertension Hyperlipidemia Hypothyroid Knee joint effusion Nausea after anesthesia Right knee pain Screening for AAA (abdominal aortic aneurysm) (~12/2009) Type 2 diabetes mellitus without complications Urinary frequency Vision loss Surgical History Surgical History (Updated
[2021-02-23] MEDS: diazePAM (*CRX) 5 MG TABLET PO (00:34)
[2021-02-23] MEDS: oxyCODONE HCL (*CRX) 2.5 MG TAB IR 7.5 MG PO ×3 (01:11→10:57)
[2021-02-23] MEDS: LEVOTHYROXINE SODIUM 112 MCG TABLET PO (06:25)
--- NOTE | 2021-02-23 08:39 | PCPTNOTE ---
PT attempted to see patient and patient refused therapy at this time stating not now. Patient states he only slept for two hours last night. PT will return later this morning.
[2021-02-23] MEDS: hydroCHLOROthiazide 12.5 MG CAPSULE PO (09:11)
[2021-02-23] MEDS: PANTOPRAZOLE 40 MG TABLET PO (09:12)
[2021-02-23] MEDS: polyethylene glycoL 3350 17 GM POWD.PACK PO (09:12)
[2021-02-23] MEDS: SENNA/DOCUSATE SODIUM TABLET 2 TAB PO (09:12)
[2021-02-23] MEDS: NIACIN SA 500 MG TABLET PO (09:12)
[2021-02-23] MEDS: metFORMIN HCL 500 MG TABLET PO (09:12)
[2021-02-23] MEDS: ASPIRIN 325 MG TABLET PO (09:12)
--- NOTE | 2021-02-23 09:40 | PCOTNOTE ---
Attempted to see patient twice this am. First attempt, patient was sleeping soundly and did not disturb. Second attempt, patient refused stating, Oh no, I'm afraid if I do anything now I'll throw up. I'm miserable. Pt reported feeling extreme fatigue due to lack of sleep. I just need to rest up, and I'll be strong. I'll be fine.
--- NOTE | 2021-02-23 09:50 | PC.NURSE ---
0945 - Spoke with Hospitalist (Sunita) about patient being discharged per Stephie CHAVEZ. Hospitalist gave OK for discharge.
--- NOTE | 2021-03-15 16:22 | PM.DS ---
DS: Admitting Diagnosis Discharge Date 02/23/21 Admitting Diagnosis RIGHT KNEE DJD DS: Discharge Diagnosis Discharge Diagnosis (1) S/P knee replacement: Qualifiers: Laterality: right Qualified Code(s): Z96.651 - Presence of right artificial knee joint Code(s): Z96.659 - Presence of unspecified artificial knee joint Status: Acute DS: Summary Hospital Course Reason for hospitalization: R TKA Hospital Course: RIGHT TKA ON 02/23/2021. HEDID VERY WELL WITH NO COMPLICATIONS. HE WAS SENT TO THE ORTHOPEDIC FLOOR, HE HAD DVT PROPHYLAXIS, PAIN WQAS WELL CONTROLLED, HE PASSED PT. ON THE NEXT POD HE WAS DOING WELL WITH NO PROBLEMS. HEWAS STABLE ON A REGULAR DIET. HE WAS THEN SENT HOME WITH HOME CARE. HE WOULD F/U IN 3WEEKS. HE WOULD CONTINUE HIS DVT PREVENTION. Time spent discussing smoking cessation with patient: 3 to 10 minutes Status at Discharge Functional status at discharge: uses cane/walker Time Spent with Patient Time attestation: Total time spent providing and/or coordinating discharge services: Time spent: Less than 30 minutes Discharge Plan Discharge Attending physician on discharge: Jassi Gomez Consulting providers: Haja Win ; Stephie De La Garza ; Quang [place] V. Discharging Clinician: Jassi Gomez Patient Disposition: Home, Self-Care Activity: may shower Diet: as tolerated Wound Care Instructions: follow printed instructions Discharge Instructions: Per Care Cooridination, patient to discharge with [facility] ([phone]) for PT/OT and shelter services. Post Op Total Knee Replacement Instructions Dr. Jassi Gomez [phone] ? Your dressing will be changed prior to your discharge. You will be sent home with one additional dressing to be changed in 5 days by the home health or SNF RN. Your tamar will be removed on the 14th day after surgery and steri-strips will be placed. ? You may shower with your dressing but do not submerge in a bath tub. ? Do not drive or operate machinery until you are released by Dr. Gomez. ? Do not walk without a walker for any reason until you are released by Dr. Gomez. ? Continue to use your ice machine. Please use a towel or pillow case to protect your skin before applying your ice machine. ? Do NOT place a pillow under your knee. You may use a pillow from the calf down if needed. ? You may begin use of your CPM machine at home if you have been given one pre-operatively. DO NOT USE WHILE YOU ARE SLEEPING. ? Your follow up appointment is indicated in your discharge instructions. ? Your medications have been sent to your pharmacy. ? Please contact our office with any questions/concerns regarding your knee at [phone]. Patient Instructions: Antibiotic Form Stand Alone Forms: General Discharge Information, General Discharge Instructions Follow-up/Referrals: Jassi Gomez MD [Physician] - Keep Reg. Scheduled Appt. Discharge Medications: New docusate sodium [Colace] 100 mg capsule 100 mg PO BID 30 Days Qty: 60 RF: 0 Continued niacin 500 mg capsule, extended release 500 mg PO QAM RF: 0 calcium carbonate-vitamin D3 [Calcium 500 + D] 500 mg(1,250mg) -200 unit tablet 1 tablet PO DAILY RF: 0 hydrochlorothiazide 12.5 mg tablet 12.5 mg PO DAILY Qty: 90 RF: 0 losartan 25 mg tablet 25 mg PO QPM RF: 0 atorvastatin 40 mg tablet 40 mg PO HS RF: 0 metoprolol succinate 50 mg tablet extended release 24 hr 50 mg PO HS RF: 0 tamsulosin 0.4 mg capsule 0.4 mg PO QPM RF: 0 aspirin 325 mg tablet 325 mg PO DAILY 28 Days Qty: 28 RF: 0 levothyroxine 112 mcg tablet 112 mcg PO DAILY Qty: 90 RF: 3 omega-3 fatty acids 1,000 mg capsule 1,000 mg PO DAILY Qty: 90 RF: 1 omeprazole 20 mg capsule,delayed release(DR/EC) 20 mg PO DAILY Qty: 90 RF: 1 metformin 500 mg tablet 500 mg PO BID Qty: 180 RF: 1 Held Glucosamine Chondroitin 550
== END 2021-02-23 12:35 | disposition home health service (06) ==
LOC: ANHSURGERY 16:36 → ANHSUROVER 16:36
PROVIDERS: Admitting Provider Orthopaedic Surgery; PCP Family Medicine; Visit Provider Orthopaedic Surgery
PROC: (CPT 27447; principal; 2021-02-21 10:30)
DX: M17.11 Unilateral primary osteoarthritis, right knee (principal); I12.9 Hypertensive chronic kidney disease with stage 1 through stage 4 chronic kidney disease, or unspecified chronic kidney disease; E11.22 Type 2 diabetes mellitus with diabetic chronic kidney disease; N18.30 Chronic kidney disease, stage 3 unspecified; E78.5 Hyperlipidemia, unspecified; E03.9 Hypothyroidism, unspecified; F17.210 Nicotine dependence, cigarettes, uncomplicated; G89.18 Other acute postprocedural pain; Z79.84 Long term (current) use of oral hypoglycemic drugs; Z96.652 Presence of left artificial knee joint
CPT/HCPCS: 64447; 27447; 36415; 73560; 78452; 80048; 80307; 81001; 82948; 85025; 85610; 85730; 86850; 86900; 86901; 87081; 93005; 93017; 97110; 97116; 97161; 97165; 97530; 97535; A9270; A9502; C1713; C1776; G0378; J0171; J0690; J1100; J1885; J2250; J2270; J2405; J2704; J2785; J2795; J3010; J7030; J7120

== ENCOUNTER 2021-11-16 16:30 | Outpatient (CLI) | payer MEDICARE, SELFPAY ==
--- NOTE | ~2021-11-16 | CT_ITS ---
EXAMINATION: CT lung screening DATE: 11/16/2021 17:10 INDICATION: Lung cancer screening TECHNIQUE: Computed tomography (CT) of the chest was performed without intravenous contrast. Addition al 3D reconstructions utilizing coronal maximum intensity projection (MIP) were performed. Automated exposure control and iterative reconstruction technique were employed. The dose-length product was 54 9.98 mGy-cm. COMPARISON: None FINDINGS: Mild emphysema at the apices. Ill-defined approximately 10 mm groundglass opacity in the right upper lobe. Fine peripheral reticular opacities in the right lower lobe and in the adjacent posterior right middle lobe which could represent atelectasis/scarring, mild pulmonary edema or chronic interstitial lung disease. There are multiple scattered small calcified and noncalcified pulmonary nodules. The l argest noncalcified nodule measures 4 mm in the superior segment of the left lower lobe. No pleural e ffusion. Heart size is normal. Atherosclerotic coronary artery calcific lesion. No pericardial effusi on. Thoracic aorta is normal in caliber. No pathologically enlarged thoracic lymphadenopathy. Small s liding-type hiatal hernia. Incompletely visualized 6.1 cm simple cyst at the right kidney. There is a lso a 1 cm hyperdense proteinaceous/hemorrhagic cyst at the right kidney. Chronic appearing mild ante rior wedging at T7 and T8. Moderate lower cervical and mild thoracic and upper lumbar spondylosis. IMPRESSION: 1. Lung-RADS category 2: Benign appearance or behavior. Continue annual screening with noncontrast lo w-dose chest CT in 12 months. 2. Small sliding-type hiatal hernia. Reviewed, dictated and finalized at location A. IMPRESSION: 1. Lung-RADS category 2: Benign appearance or behavior. Continue annual screeni ng with noncontrast low-dose chest CT in 12 months. 2. Small sliding-type hiatal hernia.
== END 2021-11-16 16:31 | disposition home or self-care (01) ==
LOC: ANHIMG 16:33
PROVIDERS: PCP Family Medicine; Visit Provider Nurse Practitioner Family
DX: Z12.2 Encounter for screening for malignant neoplasm of respiratory organs (principal); Z87.891 Personal history of nicotine dependence; K44.9 Diaphragmatic hernia without obstruction or gangrene
CPT/HCPCS: 71271

== ENCOUNTER 2021-11-20 09:36 | Outpatient (CLI) | payer MEDICARE, SELFPAY ==
[2021-11-20 18:41] LABS: Basophils Absolute Auto 0.1 K/mm3 (0.0-0.1); Basophils Percent Auto 0.8 % (0.2-1.2); Eosinophils Absolute Auto 0.7 K/mm3 (0-0.3); Eosinophils Percent Auto 10.2 % (0-4.4); Hematocrit 34.9 % (42.0-52.0); Immature Granulocyte Absolute 0.01 K/mm3 (0.00-0.031); Immature Granulocyte Percent A 0.2 % (0-0.5); Lymphocytes Absolute Auto 1.42 K/mm3 (0.9-3.2); Lymphocytes Percent Auto 22.3 % (18.3-44.2); Mean Corpuscular HGB Conc 31.5 g/dl (32-36); Mean Corpuscular Hemoglobin 27.4 pg (26-34); Mean Platelet Volume 10.5 fl (7.4-10.4); Monocytes Absolute Auto 0.5 K/mm3 (0.1-0.6); Monocytes Percent Auto 8.3 % (2.6-8.5); Neutrophils Absolute Auto 3.7 K/mm3 (1.3-6.7); Neutrophils Percent Auto 58.2 % (45.5-73.1); Platelet Count Result 235 k/mm3 (150-375); Red Blood Count 4.01 M/mm3 (4.6-6.20); Red Cell Distribution Width 14.1 % (11.5-14.5); White Blood Count 6.4 K/mm3 (4.5-10.0)
[2021-11-20 19:06] LABS: Alanine Aminotransferase 14 U/L (6-50); Albumin Level 3.4 g/dL (3.5-5.1); Alkaline Phosphatase 71 U/L (38-126); Anion Gap 7 mmol/L (8-16); Aspartate Amino Transferase 28 U/L (17-59); Bilirubin,Total 0.5 mg/dL (0.2-1.3); Blood Urea Nitrogen 31 mg/dL (9-20); Carbon Dioxide 25 mmol/L (22-30); Chloride 106 mmol/L (98-107); Cholesterol 121 mg/dL (0-200); Estimated Glomerular Filt Rate 54; Glucose 102 mg/dL (65-110); HDL Direct 45 mg/dL; Potassium 4.1 mmol/L (3.4-5.0); Sodium 138 mmol/L (137-145); Triglycerides 37 mg/dL (<150)
[2021-11-20 19:17] LABS: LDL Cholesterol Direct 57 mg/dL
[2021-11-20 19:31] LABS: Creatinine Urine 215.4 mg/dL; MALB Creatinine Ratio 44.6 mg/g (0-30)
[2021-11-20 19:34] LABS: Prostate Specific Antigen 0.3 ng/mL (< OR = 4.0); Thyroid Stimulating Hormone 0.826 uIU/mL (0.465-4.680)
[2021-11-20 20:13] LABS: Hemoglobin A1C 5.8 % (<5.7)
== END 2021-11-20 09:37 | disposition home or self-care (01) ==
PROVIDERS: PCP Family Medicine; Visit Provider Nurse Practitioner Family
DX: E78.5 Hyperlipidemia, unspecified (principal); Z12.5 Encounter for screening for malignant neoplasm of prostate; E11.9 Type 2 diabetes mellitus without complications; I10 Essential (primary) hypertension; E03.9 Hypothyroidism, unspecified
CPT/HCPCS: 36415; 80053; 80061; 82043; 83036; 84153; 84443; 85025; G0103

== ENCOUNTER → 2021-11-22 13:38 | Outpatient (CLI) | payer MEDICARE, SELFPAY ==
--- NOTE | ~2021-11-22 | US_ITS ---
EXAMINATION: US renal BI DATE: 11/22/2021 14:05 INDICATION: Acquired renal cyst TECHNIQUE: Multiple ultrasound grayscale images of the kidneys were obtained. COMPARISON: None. FINDINGS: The right kidney measures 11.1 x 6.1 x 5.9 cm. The left kidney measures 10.2 x 5.2 x 6.4 cm. The kidn eys demonstrate normal echogenicity. Large bilateral simple appearing anechoic renal cysts measuring 11.0 x 9.8 x 8.6 cm at the lower pole of the right kidney and 11.0 x 11.5 x 6.5 cm arising from the l ower pole of the left kidney. Additional smaller cysts measuring 2.5 cm the left kidney and 1.8 cm th e right kidney. Indeterminate 1.9 cm isoechoic lesion at the medial mid left kidney. There is no hydr onephrosis in either kidney. No stones identified. The partially decompressed bladder is unremarkabl e.. IMPRESSION: 1. Large bilateral renal cysts measuring up to 11.5 cm on the left and 11.0 cm on the right. No hydr onephrosis. 2. Indeterminate 1.9 cm isoechoic lesion at the medial mid left kidney. Which is indeterminate for cy stic versus solid neoplasm. Would recommend further evaluation with pre and postcontrast MRI or CT. Reviewed, dictated and finalized at location A. IMPRESSION: 1. Large bilateral renal cysts measuring up to 11.5 cm on the left and 11.0 cm on the right. No hydronephrosis. 2. Indeterminate 1.9 cm isoechoic lesion at the medial mid left kidney. Which i s indeterminate for cystic versus solid neoplasm. Would recommend further evalu ation with pre and postcontrast MRI or CT.
== END ==
PROVIDERS: PCP Nurse Practitioner Family; Visit Provider Nurse Practitioner Family
DX: N28.1 Cyst of kidney, acquired (principal); N28.9 Disorder of kidney and ureter, unspecified
CPT/HCPCS: 76775

== ENCOUNTER 2021-12-19 12:33 | Outpatient (CLI) | payer MEDICARE, SELFPAY ==
--- NOTE | ~2021-12-19 | MR_ITS ---
EXAMINATION: MR renal wo/w con DATE: 12/19/2021 13:40 INDICATION: 1.9 cm indeterminate lesion at the mid left kidney on prior ultrasound. TECHNIQUE: Magnetic resonance imaging (MRI) of the abdomen was performed without and with 20 mL Multi flako intravenous contrast. Sequences included coronal T2-weighted SS-FSE, coronal and axial FS 2D-F IESTA, axial STIR FSE, axial T2-weighted SS-FSE, axial T2-weighted FS SS-FSE, axial diffusion-weighte d SE, axial dual-echo T1-weighted FSPGR, and axial and coronal T1-weighted LAVA. Postcontrast axial T 1-weighted LAVA images were obtained in a time course. Postcontrast coronal T1-weighted LAVA images w ere obtained. COMPARISON: Ultrasound dated 11/22/2021 FINDINGS: Heart size is normal. No pericardial or pleural effusion. Small sliding-type hiatal hernia. Liver, ga llbladder, spleen, pancreas and bilateral adrenal glands are normal. There are multiple nonenhancing T2 hyperintense cysts at both kidneys largest the lower poles measuring up to 11.6 cm on the right an d 11.1 cm on the left. Minimal T1 hyperintense likely proteinaceous debris or blood layering dependen tly in the 2.5 cm exophytic cyst at the mid left kidney. There is a 1.8 cm nonenhancing T2 hyperinten se parapelvic cyst at the medial mid left kidney which corresponds in size and location to the hypoec hoic lesion on prior ultrasound. No concerning enhancing renal lesions on either the left or right. T he visualized portions of the bowels are unremarkable with no obstruction. No pathologically enlarged abdominal lymphadenopathy. Mild lumbar levocurvature with severe spondylosis. IMPRESSION: 1. Multiple bilateral renal cysts with a 1.9 cm parapelvic cyst at the mid left kidney which appears to correspond to the lesion of concern on prior ultrasound. No concerning enhancing renal lesions rere ntified. 2. Small sliding-type hiatal hernia. Reviewed, dictated and finalized at location B. IMPRESSION: 1. Multiple bilateral renal cysts with a 1.9 cm parapelvic cyst at the mid left kidney which appears to correspond to the lesion of concern on prior ultrasoun d. No concerning enhancing renal lesions identified. 2. Small sliding-type hiatal hernia.
== END 2021-12-19 12:34 | disposition home or self-care (01) ==
PROVIDERS: PCP Nurse Practitioner Family; Visit Provider Nurse Practitioner Family
DX: N28.9 Disorder of kidney and ureter, unspecified (principal); K44.9 Diaphragmatic hernia without obstruction or gangrene; N28.1 Cyst of kidney, acquired; M47.816 Spondylosis without myelopathy or radiculopathy, lumbar region
CPT/HCPCS: 74183; A9577

== ENCOUNTER 2022-05-21 10:19 | Outpatient (CLI) | payer MEDICARE, SELFPAY ==
[2022-05-21 19:22] LABS: Basophils Absolute Auto 0.1 K/mm3 (0.0-0.1); Basophils Percent Auto 0.8 % (0.2-1.2); Eosinophils Absolute Auto 0.7 K/mm3 (0-0.3); Eosinophils Percent Auto 8.7 % (0-4.4); Hematocrit 36.5 % (42.0-52.0); Hemoglobin 11.3 g/dL (14.0-18.0); Immature Granulocyte Absolute 0.02 K/mm3 (0.00-0.031); Immature Granulocyte Percent A 0.3 % (0-0.5); Lymphocytes Absolute Auto 1.54 K/mm3 (0.9-3.2); Lymphocytes Percent Auto 19.8 % (18.3-44.2); Mean Corpuscular Hemoglobin 27.4 pg (26-34); Mean Corpuscular Volume 88.4 fl (80-100); Mean Platelet Volume 10.6 fl (7.4-10.4); Monocytes Absolute Auto 0.7 K/mm3 (0.1-0.6); Neutrophils Absolute Auto 4.8 K/mm3 (1.3-6.7); Neutrophils Percent Auto 61.4 % (45.5-73.1); Platelet Count Result 221 k/mm3 (150-375); Red Blood Count 4.13 M/mm3 (4.6-6.20); Red Cell Distribution Width 15.1 % (11.5-14.5); White Blood Count 7.8 K/mm3 (4.5-10.0)
[2022-05-21 19:30] LABS: Alanine Aminotransferase 16 U/L (6-50); Albumin Level 3.6 g/dL (3.5-5.1); Alkaline Phosphatase 67 U/L (38-126); Anion Gap 4 mmol/L (8-16); Aspartate Amino Transferase 42 U/L (17-59); Bilirubin,Total 0.5 mg/dL (0.2-1.3); Blood Urea Nitrogen 28 mg/dL (9-20); Carbon Dioxide 28 mmol/L (22-30); Chloride 103 mmol/L (98-107); Cholesterol 119 mg/dL (0-200); Estimated Glomerular Filt Rate 46; Glucose 104 mg/dL (65-110); HDL Direct 49 mg/dL; Potassium 4.4 mmol/L (3.4-5.0); Sodium 135 mmol/L (137-145); Triglycerides 55 mg/dL (<150)
[2022-05-21 19:41] LABS: LDL Cholesterol Direct 52 mg/dL
[2022-05-21 20:42] LABS: Hemoglobin A1C 5.8 % (<5.7)
[2022-05-21 20:56] LABS: Hepatitis C Virus Antibody Negative (Negative)
== END 2022-05-21 10:20 | disposition home or self-care (01) ==
LOC: ANHGOSHLAB 10:21
PROVIDERS: PCP Family Medicine; Visit Provider Nurse Practitioner Family
DX: E78.5 Hyperlipidemia, unspecified (principal); E11.9 Type 2 diabetes mellitus without complications; I10 Essential (primary) hypertension; Z11.59 Encounter for screening for other viral diseases; E03.9 Hypothyroidism, unspecified
CPT/HCPCS: 36415; 80053; 80061; 83036; 84443; 85025; 86803

== ENCOUNTER 2022-11-22 13:38 | Outpatient (CLI) | payer MEDICARE, SELFPAY ==
[2022-11-22 19:09] LABS: Basophils Absolute Auto 0.1 K/mm3 (0.0-0.1); Basophils Percent Auto 0.6 % (0.2-1.2); Eosinophils Absolute Auto 0.3 K/mm3 (0-0.3); Eosinophils Percent Auto 4.1 % (0-4.4); Hematocrit 38.9 % (42.0-52.0); Hemoglobin 12.5 g/dL (14.0-18.0); Immature Granulocyte Absolute 0.02 K/mm3 (0.00-0.031); Immature Granulocyte Percent A 0.2 % (0-0.5); Lymphocytes Absolute Auto 1.65 K/mm3 (0.9-3.2); Lymphocytes Percent Auto 20.1 % (18.3-44.2); Mean Corpuscular HGB Conc 32.1 g/dl (32-36); Mean Corpuscular Hemoglobin 28.1 pg (26-34); Mean Corpuscular Volume 87.4 fl (80-100); Mean Platelet Volume 10.1 fl (7.4-10.4); Monocytes Absolute Auto 0.7 K/mm3 (0.1-0.6); Monocytes Percent Auto 8.8 % (2.6-8.5); Neutrophils Absolute Auto 5.4 K/mm3 (1.3-6.7); Neutrophils Percent Auto 66.2 % (45.5-73.1); Platelet Count Result 231 k/mm3 (150-375); Red Blood Count 4.45 M/mm3 (4.6-6.20); Red Cell Distribution Width 14.6 % (11.5-14.5); White Blood Count 8.2 K/mm3 (4.5-10.0)
[2022-11-22 19:35] LABS: Alanine Aminotransferase 16 U/L (6-50); Albumin Level 3.6 g/dL (3.5-5.1); Alkaline Phosphatase 68 U/L (38-126); Anion Gap 3 mmol/L (8-16); Aspartate Amino Transferase 29 U/L (17-59); Bilirubin,Total 0.6 mg/dL (0.2-1.3); Blood Urea Nitrogen 29 mg/dL (9-20); Calcium 9.3 mg/dL (8.4-10.2); Carbon Dioxide 30 mmol/L (22-30); Chloride 104 mmol/L (98-107); Cholesterol 118 mg/dL (0-200); Estimated Glomerular Filt Rate 37; Glucose 102 mg/dL (65-110); HDL Direct 43 mg/dL; Potassium 4.7 mmol/L (3.4-5.0); Sodium 137 mmol/L (137-145); Triglycerides 57 mg/dL (<150)
[2022-11-22 19:46] LABS: LDL Cholesterol Direct 59 mg/dL
[2022-11-22 20:04] LABS: Thyroid Stimulating Hormone 0.598 uIU/mL (0.465-4.680)
[2022-11-22 20:25] LABS: Hemoglobin A1C 5.7 % (<5.7)
[2022-11-27 00:07] LABS: Vitamin D 1,25 (OH)2 Total 26 pg/mL (18-72); Vitamin D2 1,25 (OH)2 <8 pg/mL; Vitamin D3 1,25 (OH)2 26 pg/mL
== END 2022-11-22 13:39 | disposition home or self-care (01) ==
LOC: ANHGOSHLAB 13:40
PROVIDERS: PCP Family Medicine; Visit Provider Nurse Practitioner Family
DX: I10 Essential (primary) hypertension (principal); E11.9 Type 2 diabetes mellitus without complications; E55.9 Vitamin D deficiency, unspecified
CPT/HCPCS: 36415; 80053; 80061; 82652; 83036; 84443; 85025

== ENCOUNTER → 2023-01-10 12:18 | Outpatient (CLI) | payer MEDICARE, SELFPAY ==
--- NOTE | ~2023-01-10 | XR_ITS ---
XR chest 2V DATE: 01/10/2023 12:32 INDICATION: Cough and shortness of breath for 4 days TECHNIQUE: 2 views COMPARISON: 11/16/2021 CT lung screening 05/20 FINDINGS: Moderate bilateral hyperinflation. No pulmonary infiltrate or consolidation, pleural effusi on or pulmonary vascular congestion or pneumothorax is detected. Normal heart size. Aortic arch calcification. Dextroscoliosis and degenerative spurring of the thoracic spine. IMPRESSION: Bilateral hyperinflation; no active cardiopulmonary disease Reviewed, dictated and finalized at location B.
== END ==
PROVIDERS: PCP Emergency Medicine; Visit Provider Emergency Medicine
DX: J06.9 Acute upper respiratory infection, unspecified (principal)
CPT/HCPCS: 71046

== ENCOUNTER 2023-01-31 09:37 | Outpatient (CLI) | payer MEDICARE, SELFPAY ==
[2023-01-31 18:15] LABS: Albumin Level 3.5 g/dL (3.5-5.1); Anion Gap 9 mmol/L (8-16); Blood Urea Nitrogen 30 mg/dL (9-20); Calcium 9.3 mg/dL (8.4-10.2); Carbon Dioxide 23 mmol/L (22-30); Chloride 105 mmol/L (98-107); Estimated Glomerular Filt Rate 42; Glucose 107 mg/dL (65-110); Phosphorus 3.7 mg/dL (2.5-4.5); Potassium 4.1 mmol/L (3.4-5.0); Sodium 137 mmol/L (137-145)
[2023-01-31 18:27] LABS: Complement C3 121 mg/dL (88-165)
[2023-01-31 18:31] LABS: Total Protein Urine Random 26 mg/dL
[2023-01-31 18:51] LABS: Creatinine Urine 516.4 mg/dL; Ur Ttl Prot Creatinine Ratio 0.05 mg/mg (0-0.20)
[2023-02-02 13:19] LABS: Albumin 3.1 g/dL (3.8-4.8); Alpha 1 Globulin 0.3 g/dL (0.2-0.3); Alpha 2 Globulin 0.7 g/dL (0.5-0.9); Beta 1 Globulin 0.4 g/dL (0.4-0.6); Gamma Globulin 0.8 g/dL (0.8-1.7); Protein, Total 5.6 g/dL (6.1-8.1)
[2023-02-04 02:02] LABS: Anti Glomerular Basement Memb <1.0 AI (<1.0)
[2023-02-04 21:44] LABS: Creatinine, Random Urine 362 mg/dL (20-320); Total Protein/Creatinine Ratio 293 mg/g creat (25-148)
[2023-02-05 10:39] LABS: ANCA Screen Negative (Negative)
== END 2023-01-31 09:38 | disposition home or self-care (01) ==
LOC: ANHGOSHLAB 09:39
PROVIDERS: PCP Emergency Medicine; Visit Provider Internal Medicine Nephrology
DX: I12.9 Hypertensive chronic kidney disease with stage 1 through stage 4 chronic kidney disease, or unspecified chronic kidney disease (principal); N18.32 Chronic kidney disease, stage 3b
CPT/HCPCS: 36415; 80069; 82570; 83520; 84155; 84156; 84165; 84166; 86036; 86038; 86160; 86225

== ENCOUNTER 2023-02-25 01:21 | Day surgery (SDC) | payer MEDICARE, SELFPAY ==
[2023-02-06 13:17] VITALS: BMI 41.1
--- NOTE | 2023-02-21 10:19 | SUR.PREOP ---
Patient called regarding upcoming procedure. Reviewed preop instructions, appointment times, and procedure prep.
[2023-02-25 08:24] VITALS: BP 165/85; PULSE 95; RESP 20; TEMP 36.2; O2SAT 99
[2023-02-25] MEDS: LACTATED RINGERS 1,000 ML 150 ML IV CONT (08:27)
[2023-02-25 08:36] LABS: Glucose Point of Care 121 mg/dl (65-105)
--- NOTE | 2023-02-25 09:05 | WPDANESEPPF ---
Anes - Initial Pre Proc Eval Procedure: Operation Date: 02/25/23 09:30 Proposed Procedures p Colonoscopy - Lex Mosqueda MD Date/Time: 02/25/23 09:05 Surgeon: Lex Mosqueda MD Pre Op Diagnosis: hx of colon polyps Patient Data Age: 73 Gender: M Height: 1.88 m Weight: 143 kg Last Vital Signs Temp 36.2 C L 02/25/23 08:24 Pulse 95 02/25/23 08:24 Resp 20 02/25/23 08:24 BP 165/85 H 02/25/23 08:24 Pulse Ox 99 02/25/23 08:24 O2 Del Method Room Air 02/25/23 08:24 Allergies Allergy/AdvReac Type Severity Reaction Status Date / Time No Known Allergies Allergy Verified 02/25/23 08:23 Home Medications Medication Instructions Recorded Confirmed Type calcium carbonate 500 mg-vitamin 1 tablet PO DAILY 03/18/19 02/06/23 History D3 5 mcg (200 unit) tablet (Calcium 500 + D) niacin 500 mg capsule,extended 500 mg PO QAM 03/18/19 02/06/23 History release glucosamine sulf dipot 1 cap PO BID 01/22/21 02/06/23 History chlr,msm,chond 550 mg-C 30 mg-dc 1 mg capsule (Glucosamine Chondroitin) aspirin 325 mg tablet 325 mg PO DAILY 28 days #28 tabs 02/23/21 02/06/23 Rx metoprolol succinate 50 mg 50 mg PO QHS #90 tabs 09/06/22 02/06/23 Rx tablet,extended release 24 hr losartan 25 mg tablet 25 mg PO QPM #90 tabs 09/30/22 02/06/23 Rx atorvastatin 40 mg tablet 40 mg PO QHS #90 tabs 12/10/22 02/06/23 Rx semaglutide 1 mg/dose (4 mg/3 mL) 1 mg (0.75 mL) subcut WEEKLY #3 mL 01/14/23 02/06/23 Rx subcutaneous pen injector (Ozempic) sodium,potassium,mag sulfates 17.5 See Rx Instructions PO .COMPLEX 01/15/23 02/06/23 Rx gram-3.13 gram-1.6 gram oral soln #354 mL (Suprep Bowel Prep Kit) metformin 500 mg tablet 500 mg PO DAILY 02/06/23 02/06/23 History levothyroxine 112 mcg tablet 112 mcg PO DAILY #90 tabs 02/25/23 02/25/23 Rx omeprazole 20 mg capsule,delayed 20 mg PO DAILY #90 caps 02/25/23 02/25/23 Rx release tamsulosin 0.4 mg capsule 0.4 mg PO DAILY #90 caps 02/25/23 02/25/23 Rx Laboratory Tests 02/25/23 08:31 POC Capillary Glucose 121 H mg/dl (65-105) Patient hx anesthesia problems: none Family hx anesthesia problems: none Results Review: All pre-operative results and documents have been reviewed as part of the pre-operative evaluation. [facility] Past Medical History Medical History BPH (benign prostatic hyperplasia) Essential (primary) hypertension Former smoker GERD without esophagitis Hyperlipidemia Hypothyroid Knee joint effusion Nausea after anesthesia Right knee pain Screening for AAA (abdominal aortic aneurysm) (~12/2009) Type 2 diabetes mellitus without complications Urinary frequency Vision loss Surgical History Surgical History H/O colonoscopy (~02/2018) History of colonoscopy with polypectomy (~02/18/18) Dr Mosqueda - Repeat in 02/2023 History of discectomy (~1976) L4-L5 removed History of left knee replacement (~01/2006) S/P knee replacement Status post right knee replacement Family History Family History Father Family history of diabetes mellitus in first degree relative Acute myocardial infarction Mother Cerebrovascular accident Social History Social History Smoking packs per day: 2 Smoking cigarettes per day: 40.0 Years smoked: 25 Smoking pack-years: 50.00 Smoking status: Former smoker Tobacco type: cigarettes Smoking end date: 03/10/87 Additional smoking assessment comments: DENIES ANY FORM OF TOBACCO USE Alcohol intake: never Drinks per week: 2 Alcohol use details: [employer] on Friday Substance use: current Substance use type: marijuana Last use: smokes marijuana occasionally Lack of Transportation: No Lack of Food: Never True Current Housing: I Have Housing Concern
--- NOTE | 2023-02-25 09:15 | PM.HPGS ---
History of Present Illness History of Present Illness Consent: Risks, benefits, and alternatives have been discussed and questions answered. Patient agrees to proceed with procedure. Chief complaint: hx of colon polyps Narrative: Bertrand Jacobs is a 73 year old male presents for screening colonoscopy. Patient has had colon polyps on previous exams. His current weight appetite and bowel movements are normal. He as recently been on Ozempic for weight loss. He states this is altered his bowel habits. Recently has had some loose stools. He denies any bleeding. Family history noncontributory. Review of Systems Review of Systems: Review of systems noncontributory. [facility] Past Medical History Medical History BPH (benign prostatic hyperplasia) Essential (primary) hypertension Former smoker GERD without esophagitis Hyperlipidemia Hypothyroid Knee joint effusion Nausea after anesthesia Right knee pain Screening for AAA (abdominal aortic aneurysm) (~12/2009) Type 2 diabetes mellitus without complications Urinary frequency Vision loss Surgical History Surgical History H/O colonoscopy (~02/2018) History of colonoscopy with polypectomy (~02/18/18) Dr Mosqueda - Repeat in 02/2023 History of discectomy (~1976) L4-L5 removed History of left knee replacement (~01/2006) S/P knee replacement Status post right knee replacement Family History Family History Father Family history of diabetes mellitus in first degree relative Acute myocardial infarction Mother Cerebrovascular accident Social History Social History Smoking packs per day: 2 Smoking cigarettes per day: 40.0 Years smoked: 25 Smoking pack-years: 50.00 Smoking status: Former smoker Tobacco type: cigarettes Smoking end date: 03/10/87 Additional smoking assessment comments: DENIES ANY FORM OF TOBACCO USE Alcohol intake: never Drinks per week: 2 Alcohol use details: [employer] on Friday Substance use: current Substance use type: marijuana Last use: smokes marijuana occasionally Lack of Transportation: No Lack of Food: Never True Current Housing: I Have Housing Concerned About Future Housing: No Difficulty Paying Gas/Electric Bills: No Difficulty Paying for Meds: No Currently Unemployed: No Education: Bachelor's Degree Difficulty w/ Childcare or Family Care: No Living arrangements: alone Occupation/Education: retired Gender identity (if verbalized by the patient): Male Spiritual care concerns: No Agree to blood products: Yes Meds Home Medications and Allergies Home Medications Medication Instructions Recorded Confirmed Type calcium carbonate 500 mg-vitamin 1 tablet PO DAILY 03/18/19 02/06/23 History D3 5 mcg (200 unit) tablet (Calcium 500 + D) niacin 500 mg capsule,extended 500 mg PO QAM 03/18/19 02/06/23 History release glucosamine sulf dipot 1 cap PO BID 01/22/21 02/06/23 History chlr,msm,chond 550 mg-C 30 mg-dc 1 mg capsule (Glucosamine Chondroitin) aspirin 325 mg tablet 325 mg PO DAILY 28 days #28 tabs 02/23/21 02/06/23 Rx metoprolol succinate 50 mg 50 mg PO QHS #90 tabs 09/06/22 02/06/23 Rx tablet,extended release 24 hr losartan 25 mg tablet 25 mg PO QPM #90 tabs 09/30/22 02/06/23 Rx atorvastatin 40 mg tablet 40 mg PO QHS #90 tabs 12/10/22 02/06/23 Rx semaglutide 1 mg/dose (4 mg/3 mL) 1 mg (0.75 mL) subcut WEEKLY #3 mL 01/14/23 02/06/23 Rx subcutaneous pen injector (Ozempic) sodium,potassium,mag sulfates 17.5 See Rx Instructions PO .COMPLEX 01/15/23 02/06/23 Rx gram-3.13 gram-1.6 gram oral soln #354 mL (Suprep Bowel Prep Kit) metformin 500 mg tablet 500 mg PO DAILY 02/06/23 02/06/23 History levothyroxine 112 mcg tablet 112 mcg PO DAILY
[2023-02-25 10:20] VITALS: BP 98/58; PULSE 80; RESP 18; O2SAT 97
[2023-02-25 10:30] VITALS: BP 117/70; PULSE 82; RESP 23; O2SAT 100
[2023-02-25 10:40] VITALS: BP 138/63; PULSE 73; RESP 20; O2SAT 100
== END 2023-02-25 10:54 | disposition home or self-care (01) ==
PROVIDERS: PCP Family Medicine; Visit Provider Internal Medicine Gastroenterology
PROC: 0DJD8ZZ Inspection of Lower Intestinal Tract, Via Natural or Artificial Opening Endoscopic (ICD-10-PCS; CPT 45378; principal; 2023-02-25 09:30)
DX: Z12.11 Encounter for screening for malignant neoplasm of colon (principal); D12.4 Benign neoplasm of descending colon; D12.5 Benign neoplasm of sigmoid colon; K57.30 Diverticulosis of large intestine without perforation or abscess without bleeding; K64.8 Other hemorrhoids; N40.0 Benign prostatic hyperplasia without lower urinary tract symptoms; I10 Essential (primary) hypertension; K21.9 Gastro-esophageal reflux disease without esophagitis; E78.5 Hyperlipidemia, unspecified; E03.9 Hypothyroidism, unspecified; E11.9 Type 2 diabetes mellitus without complications; Z83.3 Family history of diabetes mellitus; Z87.891 Personal history of nicotine dependence; F12.90 Cannabis use, unspecified, uncomplicated; Z79.82 Long term (current) use of aspirin; Z79.85 Long-term (current) use of injectable non-insulin antidiabetic drugs; Z79.899 Other long term (current) drug therapy
CPT/HCPCS: 45385; 82948; 88305; J2704; J7120

== ENCOUNTER 2023-05-26 10:28 | Outpatient (CLI) | payer MEDICARE, SELFPAY ==
[2023-05-26 13:23] LABS: Albumin Level 3.6 g/dL (3.5-5.1); Anion Gap 3 mmol/L (8-16); Blood Urea Nitrogen 31 mg/dL (9-20); Calcium 9.2 mg/dL (8.4-10.2); Carbon Dioxide 28 mmol/L (22-30); Chloride 107 mmol/L (98-107); Estimated Glomerular Filt Rate 42; Glucose 101 mg/dL (65-110); Phosphorus 3.3 mg/dL (2.5-4.5); Potassium 4.3 mmol/L (3.4-5.0); Sodium 138 mmol/L (137-145)
[2023-05-26 13:30] LABS: Parathyroid Intact 53.2 pg/mL (7.5-53.5)
[2023-05-26 13:41] LABS: Vitamin D 25 Hydroxy 93.5 ng/mL
[2023-05-26 13:51] LABS: Total Protein Urine Random 92 mg/dL
[2023-05-26 14:06] LABS: Ur Ttl Prot Creatinine Ratio 0.26 mg/mg (0-0.20)
== END 2023-05-26 10:29 | disposition home or self-care (01) ==
LOC: ANHGOSHLAB 10:29
PROVIDERS: PCP Family Medicine; Visit Provider Internal Medicine Nephrology
DX: E11.22 Type 2 diabetes mellitus with diabetic chronic kidney disease (principal); E55.9 Vitamin D deficiency, unspecified; I12.9 Hypertensive chronic kidney disease with stage 1 through stage 4 chronic kidney disease, or unspecified chronic kidney disease; N18.32 Chronic kidney disease, stage 3b; N25.81 Secondary hyperparathyroidism of renal origin
CPT/HCPCS: 36415; 80069; 82306; 82570; 83970; 84156

== ENCOUNTER 2023-09-29 09:24 | Outpatient (CLI) | payer MEDICARE, SELFPAY ==
[2023-09-29 15:03] LABS: Creatinine Urine 321.4 mg/dL; Total Protein Urine Random 31 mg/dL
[2023-09-29 15:45] LABS: Albumin Level 3.6 g/dL (3.5-5.1); Anion Gap 6 mmol/L (4-12); Blood Urea Nitrogen 30 mg/dL (9-20); Calcium 9.6 mg/dL (8.4-10.2); Carbon Dioxide 26 mmol/L (22-30); Chloride 104 mmol/L (98-107); Estimated Glomerular Filt Rate 37; Glucose 98 mg/dL (65-110); Phosphorus 3.9 mg/dL (2.5-4.5); Potassium 4.3 mmol/L (3.4-5.0); Sodium 136 mmol/L (137-145)
== END 2023-09-29 09:25 | disposition home or self-care (01) ==
LOC: ANHGOSHLAB 09:26
PROVIDERS: PCP Family Medicine; Visit Provider Internal Medicine Nephrology
DX: E11.22 Type 2 diabetes mellitus with diabetic chronic kidney disease (principal); I12.9 Hypertensive chronic kidney disease with stage 1 through stage 4 chronic kidney disease, or unspecified chronic kidney disease; N18.32 Chronic kidney disease, stage 3b
CPT/HCPCS: 36415; 80069; 82570; 84156

== ENCOUNTER 2023-10-14 10:20 | Outpatient (CLI) | payer MEDICARE, SELFPAY ==
[2023-10-14 14:37] LABS: Cholesterol 117 mg/dL (0-200); HDL Direct 45 mg/dL; Triglycerides 68 mg/dL (<150)
[2023-10-14 14:56] LABS: LDL Cholesterol Direct 49 mg/dL
[2023-10-14 16:25] LABS: Hemoglobin A1C 5.9 % (<5.7)
== END 2023-10-14 10:21 | disposition home or self-care (01) ==
PROVIDERS: PCP Family Medicine; Visit Provider Nurse Practitioner Family
DX: E78.5 Hyperlipidemia, unspecified (principal); E11.9 Type 2 diabetes mellitus without complications
CPT/HCPCS: 36415; 80061; 83036

== ENCOUNTER 2023-10-31 13:04 | Outpatient (CLI) | payer MEDICARE, SELFPAY ==
--- NOTE | ~2023-10-31 | MR_ITS ---
EXAMINATION: MR IAC wo/w con DATE: 10/31/2023 14:07 INDICATION: Asymmetrical sensorineural hearing loss. TECHNIQUE: Magnetic resonance imaging (MRI) of the brain, brainstem, and internal auditory canals was performed without and with 20 mL MultiHance intravenous contrast. COMPARISON: None. FINDINGS: There are scattered areas of nonspecific increased T2-weighted signal intensity in the cere bral white matter, which is within normal limits for the patient's age. There is no intracranial hemo rrhage, acute infarction, or abnormal intracranial mass lesion. The ventricles are normal in size. Th ere are mucous retention cysts in the maxillary sinuses. There are likely changes of ocular lens repl acement surgeries. The internal auditory canals, inner ears, and tympanic cavities are normal. The ma stoid air cells are normal. IMPRESSION: 1. Normal aging brain. Reviewed, dictated and finalized at location A. IMPRESSION: 1. Normal aging brain.
== END 2023-10-31 13:05 | disposition home or self-care (01) ==
PROVIDERS: PCP Family Medicine; Visit Provider Otolaryngology
DX: H90.5 Unspecified sensorineural hearing loss (principal)
CPT/HCPCS: 70553; A9577

== ENCOUNTER 2024-01-19 14:30 | Outpatient (CLI) | payer MEDICARE, SELFPAY ==
[2024-01-19 19:16] LABS: Albumin Level 3.6 g/dL (3.5-5.1); Anion Gap 7 mmol/L (4-12); Blood Urea Nitrogen 32 mg/dL (9-20); Calcium 9.4 mg/dL (8.4-10.2); Carbon Dioxide 27 mmol/L (22-30); Chloride 101 mmol/L (98-107); Estimated Glomerular Filt Rate 37; Glucose 100 mg/dL (65-110); Phosphorus 3.2 mg/dL (2.5-4.5); Potassium 4.3 mmol/L (3.4-5.0); Sodium 135 mmol/L (137-145)
[2024-01-19 19:24] LABS: Creatinine Urine 198.9 mg/dL; Total Protein Urine Random 12 mg/dL; Ur Ttl Prot Creatinine Ratio 0.06 mg/mg (0-0.20)
[2024-01-19 19:28] LABS: Parathyroid Intact 23.4 pg/mL (14.5-75.2)
[2024-01-19 21:47] LABS: Vitamin D 25 Hydroxy 59.6 ng/mL
== END 2024-01-19 14:31 | disposition home or self-care (01) ==
LOC: ANHGOSHLAB 14:32
PROVIDERS: PCP Family Medicine; Visit Provider Internal Medicine Nephrology
DX: E11.22 Type 2 diabetes mellitus with diabetic chronic kidney disease (principal); E55.9 Vitamin D deficiency, unspecified; I12.9 Hypertensive chronic kidney disease with stage 1 through stage 4 chronic kidney disease, or unspecified chronic kidney disease; N18.32 Chronic kidney disease, stage 3b; N25.81 Secondary hyperparathyroidism of renal origin
CPT/HCPCS: 36415; 80069; 82306; 82570; 83970; 84156

== ENCOUNTER 2024-06-07 11:38 | Outpatient (CLI) | payer MEDICARE, SELFPAY ==
--- OUTSIDE RECORDS SUMMARY | 2024-06-07 13:10 | XMS_ITS | Data Portability ---
Author Organization [facility] [employer], Main Office Address [address] [place] [address] Care Team Providers Care Carpenter Packing Name Role Phone YOAN RHOADES Heel Seat Trimmer ROWAN GARY Primary Care Provider Assessment No assessment recorded. Plan of Treatment Reminders Order Date Submit Date Provider Last Modified By Organization Details Last Modified Time Details Appointments None record ed. Lab None record ed. Referral None record ed. Procedures None record ed. Surgeries None record ed. Imaging None record ed. Medication Orders None record ed. Patient TargetsNo targets recorded. Patient InstructionsNo instructions recorded. Reason for Referral None Reported. Results Created Date Observation Date Name Description Value Unit Range Abnormal Flag Note LastModifiedBy Organization Detail LastModifiedTime 10/09/19 24 10/09/2023 audio gram + tympa nogra m No observ ation record ed. [email or web address] [facility] [address] [facility], [place], [address], 10/14/2023 10:21:39 10/15/19 24 10/09/2023 audio gram + tympa nogra m No observ ation record ed. [email or web address] [facility] [address] [facility], [place], [address], 10/16/2023 08:25:55 11/03/19 24 10/31/2023 MRI, inter nal audit ory canal , w/wo contr ast No observ ation record ed. [email or web address], [place], [address], 11/03/2023 08:47:41 11/11/19 24 11/11/2023 MRI, inter nal audit ory canal , w/wo contr ast No observ ation record ed. [address] [facility] [address], [place], [address], 11/12/2023 10:36:00 Result Notes None recorded. Problems Name Problem SNOMED Code Status Onset Date Resolution Date Notes Provider Name and Address Organization Details Recorded Time Sensorineural hearing loss 62328753 Active 2023 Sonam Hamlin RN null, [employer] 4 15:03:07 Asymmetrical sensorineural hearing loss 457353137 Active 2023 Jude Lechuga MD [address] [place] [address], [facility] [address], [place], [address] [facility] [employer] 4 15:03:48 Claustrophobia 50814118 Active 2023 Sonam Hamlin RN null, [employer] 09:42:34 Problem Notes None recorded. Procedures Surgical History Date Name Laterality Status Provider Name and Address Organization Details Recorded Time operation on the ear completed ILEANA Grimm [employer] 07/01/2023 14:34:03 Imaging Results Imaging Date Name Status LastModified by Organiz ation Details LastModified Time 10/09/2023 audiogram + tympanogram completed [address] Audiology [address] [facility] [address], [place], [address], 10/14/2023 10:21:39 10/09/2023 audiogram + tympanogram completed [address] [facility] [address] [facility] [address], [place], [address], 10/16/2023 08:25:55 10/31/2023 MRI, internal auditory canal, w/wo contrast completed [address], [place], [address], 11/03/2023 08:47:41 11/11/2023 MRI, internal auditory canal, w/wo contrast completed [address] [facility] [address], [place], [address], 11/12/2023 10:36:00 Procedure Notes None recorded. Medical Equipment None Reported. Allergies No known drug allergies Medications Name Sig Start Date Stop Date Status Note LastModified by Organization Details LastModified Time amoxicillin 500 mg capsule TK FOUR CS PO 1 HOUR B DAPP active Not Available Not Available No t Available atorvastati n 40 mg tablet Take 1 tablet every day by oral route. active Not Available Not Available No t Available metformin 500 mg tablet TAKE 1 TABLET BY MOUTH DAILY active Not Available Not Available No t Available atorvastati n 20 mg tablet 03/17 completed Not Available Not Available Not Available azithromyci n 250 mg tablet 07/08 completed Not Available Not Available Not Available metoprolol succinate ER 50 mg tablet,exte nded release 24 hr Take 1 tablet every day by oral route. active Not Available Not Available No t Available hydrocodone 5 mg-acetamin ophen 325 mg tablet 03/17 completed Not Available Not Available Not Available metronidazo le 500 mg tablet 03/17 completed Not Available Not Available Not Available tamsulosin 0.4 mg capsule Take 1 capsule every day by oral route. active Not Available Not Available No t Available diazepam 2 mg tablet TAKE 1 TABLET BY MOUTH TWICE DAILY NEEDED FOR ANXIETY active Not Available Not Available No t Available metformin 1,000 mg tablet TK 1 T PO BID 03/17 completed Not Available Not Available Not Available losartan 25 mg tablet Take 1 tablet every day by oral route. active Not Available Not Available No t Available omeprazole 20 mg capsule,del ayed release Take 1 capsule every day by oral route. active Not Available Not Available No t Available hydrocodone 5 mg-acetamin ophen 500 mg tablet 03/17 completed Not Available Not Available Not Available alprazolam 2 mg tablet TAKE 1 TABLET BY MOUTH 1 HOUR BEFORE SCHEDULED MRI APPOINTME NT active Not Available Not Available No t Available levofloxaci n 500 mg tablet 03/17 completed Not Available Not Available Not Available diazepam 5 mg tablet 03/17 completed Not Available Not Available Not Available levothyroxi ne 112 mcg tablet Take 1 tablet every day by oral route. active Not Available Not Available No t Available amoxicillin 875 mg-potassiu m clavulanate 125 mg tablet TAKE 1 TABLET BY MOUTH TWICE DAILY active Not Available Not Available No t Available Adult Low Dose Aspirin 81 mg tablet,victorino yed release Take 1 tablet every day by oral route. active Not Available Not Available No t Available hydrochloro thiazide 12.5 mg tablet TAKE 1 TABLET BY MOUTH DAILY active Not Available Not Available No t Available Flovent Diskus 250 mcg/actuati on powder for inhalation INHALE 1 PUFF BY MOUTH EVERY 12 HOURS active Not Available Not Available No t Available sodium,pota ssium,mag sulfates 17.5 gram-3.13 gram-1.6 gram oral soln MIX AND DRINK DIRECTED active Not Available Not Available No t Available Breztri Aerosphere 160 mcg-9mcg-4. 8mcg/actuat ion HFA aerosol inhaler INHALE 2 PUFFS BY MOUTH DAILY active Not Available Not Available No t Available Ozempic 1 mg/dose (4 mg/3 mL) subcutaneou s pen injector ADMINISTE R 1 MG UNDER THE SKIN WEEKLY active Not Available Not Available No t Available Ozempic 2 mg/dose (8 mg/3 mL) subcutaneou s pen injector ADMINISTE R 2 MG UNDER THE SKIN WEEKLY active Not Available Not Available No t Available Ozempic 0.25 mg or 0.5 mg (2 mg/3 mL) subcutaneou s pen injector Inject by subcutane ous route. active Not Available Not Available No t Available Vitals Date Recorded Body height Body mass index (BMI) Body weight Body temperature Provider Name and Address Organization Details Last Updated DateTime 07/09/2023 190.5 cm 39.4 kg/m2 510868.6 g 97.8 [degF] Sonam Hamlin RN [facility] 07/09/2023 14:51:33 Social History Question Answer Notes LastModified by Organizat ion Details LastModified Time Tobacco Smoking Status Former Smoker Sonam Hamlin RN null, [facility] [employer] 07/09/2023 14:49:39 What Is Your Level Of Alcohol Consumption? None Information not available 07/09/2023 When Did You Quit Smoking? 16+yearssinc elastcigaret te Information not available 07/09/2023 Sex: Unknown Functional Status None recorded. Mental Status None recorded. Family History Nothing Reported Notes:No ENT Medical History Condition Response CANCER: SPECIFY Y ENT Y Past Encounters Encounter ID Performer Location Encounter Start Date Encounter Closed Date Diagnosis/Indication Diagnosis SNOMED-CT Code Diagnosis ICD10 Code Diagnosis Note [id number] Jude Lechuga MD [facility] [place] [address] [place] [address] 07/09/2023 14:18:22 07/10/2023 11:05:26 Asymmetrical sensorineural hearing loss 685560956 H90.5 Health Concerns Section Related Observation LastModified by Organization Detai ls LastModified Time None Recorded Concern Status LastModified by Organization Details LastModified Time None Recorded Advance Directives Directive None Recorded Payers Encounter Date Sequence Insurance Name Policy Number Policy Pate Covered Member ID Pate Member ID Guarantor Name 07/09/2023 1 [employer] (MEDICARE REPLACEMENT PPO) [id number] Bertrand Jacobs [id number] Bertrand Jacobs Notes Date Note Type Note Provider Name and Address Organization Details Recorded Time 07/09/2023 text/html this patient reports right-sided hearing loss. This feels like a pressure sensation and that his right ear will not pop. He recently traveled by air and did not have troubles Jude Lechuga MD [address] [place] [address], [place] [address], [place], [address], [facility] 07/09/2023 15:04:13
[2024-06-07 14:17] LABS: Creatinine Urine 162.1 mg/dL; Total Protein Urine Random 8 mg/dL; Ur Ttl Prot Creatinine Ratio 0.05 mg/mg (0-0.20)
[2024-06-07 14:28] LABS: Albumin Level 3.6 g/dL (3.5-5.1); Anion Gap 6 mmol/L (4-12); Blood Urea Nitrogen 37 mg/dL (9-20); Calcium 9.3 mg/dL (8.4-10.2); Carbon Dioxide 28 mmol/L (22-30); Chloride 104 mmol/L (98-107); Estimated Glomerular Filt Rate 38; Glucose 94 mg/dL (65-110); Phosphorus 3.9 mg/dL (2.5-4.5); Potassium 4.6 mmol/L (3.4-5.0); Sodium 138 mmol/L (137-145)
== END 2024-06-07 11:39 | disposition home or self-care (01) ==
LOC: ANHGOSHLAB 11:39
PROVIDERS: PCP Family Medicine; Visit Provider Internal Medicine Nephrology
DX: E11.22 Type 2 diabetes mellitus with diabetic chronic kidney disease (principal); I12.9 Hypertensive chronic kidney disease with stage 1 through stage 4 chronic kidney disease, or unspecified chronic kidney disease; N18.32 Chronic kidney disease, stage 3b
CPT/HCPCS: 36415; 80069; 82570; 84156

== ENCOUNTER 2024-07-22 08:31 | Outpatient (CLI) | payer MEDICARE, SELFPAY ==
--- OUTSIDE RECORDS SUMMARY | 2024-07-22 08:35 | XMS_ITS | Data Portability ---
Author Organization [facility] [employer], Main Office Address [address] [place] [address] Care Team Providers Care Office Automation Clerk Name Role Phone YOAN RHOADES Marker Maker ROWAN GARY Primary Care Provider [phone] Assessment No assessment recorded. Plan of Treatment [...] nogra m No observ ation record ed. [email or web address] [facility] [address] [facility], [place], [address], 10/14/2023 10:21:39 10/15/19 24 10/09/2023 audio gram + tympa nogra m No observ ation record ed. [email or web address] [facility] [address] [facility], [place], [address], 10/16/2023 08:25:55 11/03/19 24 10/31/2023 MRI, inter nal audit ory canal , w/wo contr ast No observ ation record ed. [email or web address] [address], [place], [address], 11/03/2023 08:47:41 11/11/19 24 11/11/2023 MRI, inter nal audit ory canal , w/wo contr ast No observ ation record ed. [address] [facility] [address], [place], [address], 11/12/2023 10:36:00 Result Notes None recorded. Problems Name Problem SNOMED Code Status Onset Date Resolution Date Notes Provider Name and Address Organization Details Recorded Time Sensorineural hearing loss 88117466 Active 2023 Sonam Hamlin RN null, [employer] 4 15:03:07 Asymmetrical sensorineural hearing loss 145115585 Active 2023 Jude Lechuga MD [address] [place] [address], [facility] [address], [place], [address] [facility] [employer] 4 15:03:48 Claustrophobia 02617198 Active 2023 Sonam Hamlin RN null, [employer] 09:42:34 Problem Notes None recorded. Procedures Surgical History Date Name Laterality Status Provider Name and Address Organization Details Recorded Time operation on the ear completed ILEANA Grimm [employer] 07/01/2023 14:34:03 Imaging Results Imaging Date Name Status LastModified by Organiz ation Details LastModified Time 10/09/2023 audiogram + tympanogram completed [address] Aud[facility] [address] [facility] [address], [place], [address], 10/14/2023 10:21:39 10/09/2023 audiogram + tympanogram completed [address] [facility] [address] [facility] [address], [place], [address], 10/16/2023 08:25:55 10/31/2023 MRI, internal auditory canal, w/wo contrast completed [address], [place], [address], 11/03/2023 08:47:41 11/11/2023 MRI, internal auditory canal, w/wo contrast completed [address] [facility] [address], [place], [address], 11/12/2023 10:36:00 Procedure Notes None recorded. Medical [...] Updated DateTime 07/09/2023 190.5 cm 39.4 kg/m2 575980.6 g 97.8 [degF] Sonam Hamlin RN [facility] [employer] 07/09/2023 14:51:33 Social History Question Answer Notes LastModified by Organizat ion Details LastModified Time Tobacco Smoking Status Former Smoker Sonam Hamlin RN null, [facility] [employer] 07/09/2023 14:49:39 When Did You Quit Smoking? 16+yearssinc elastcigaret te Information not available 07/09/2023 Sex: Unknown Functional Status Question Answer Note LastModified by Organization D etails LastModified Time What is your level of alcohol consumption? None Information not available 07/09/2023 Mental Status None recorded. Family History Nothing Reported Notes:No ENT Medical History Condition Response CANCER: SPECIFY Y ENT Y Past Encounters Encounter ID Performer Location Encounter Start Date Encounter Closed Date Diagnosis/Indication Diagnosis SNOMED-CT Code Diagnosis ICD10 Code Diagnosis Note [id number] Jude Lechuga MD [facility] [place] [address] [place] [address] 07/09/2023 14:18:22 07/10/2023 11:05:26 Asymmetrical sensorineural hearing loss 945565480 H90.5 Health Concerns Section Related Observation LastModified by Organization Detai ls LastModified Time None Recorded Concern Status LastModified by Organization Details LastModified Time None Recorded Advance Directives Directive None Recorded Payers Encounter Date Sequence Insurance Name Policy Number Policy Pate Covered Member ID Pate Member ID Guarantor Name 07/09/2023 1 [employer] (MEDICARE REPLACEMENT/ ADVANTAGE - PPO) [id number] Bertrand Jacobs [id number] Bertrand Jacobs Notes Date Note Type Note Provider Name and Address Organization Details Recorded Time 07/09/2023 text/html this patient reports right-sided hearing loss. This feels like a pressure sensation and that his right ear will not pop. He recently traveled by air and did not have troubles Jude Lechuga MD [address] [place] [address], [place], [address], [employer] [facility] [employer] [facility] [id number] 07/09/2023 15:04:13
[2024-07-22 19:35] LABS: Cholesterol 116 mg/dL (0-200); HDL Direct 46 mg/dL; Triglycerides 52 mg/dL (<150)
[2024-07-22 19:49] LABS: LDL Cholesterol Direct 47 mg/dL
[2024-07-22 19:53] LABS: Thyroid Stimulating Hormone 0.689 uIU/mL (0.465-4.680)
[2024-07-22 22:29] LABS: Hemoglobin A1C 5.5 % (<5.7)
== END 2024-07-22 08:32 | disposition home or self-care (01) ==
PROVIDERS: PCP Family Medicine; Visit Provider Student in an Organized Health Care Education/Training Program
DX: E03.9 Hypothyroidism, unspecified (principal); E11.9 Type 2 diabetes mellitus without complications; E78.5 Hyperlipidemia, unspecified
CPT/HCPCS: 36415; 80061; 83036; 84443

== ENCOUNTER 2024-10-04 10:03 | Outpatient (CLI) | payer MEDICARE, SELFPAY ==
[2024-10-04 14:18] LABS: Albumin Level 3.3 g/dL (3.5-5.1); Anion Gap 7 mmol/L (4-12); Blood Urea Nitrogen 32 mg/dL (9-20); Calcium 9.3 mg/dL (8.4-10.2); Carbon Dioxide 25 mmol/L (22-30); Chloride 106 mmol/L (98-107); Estimated Glomerular Filt Rate 40; Glucose 100 mg/dL (65-110); Potassium 4.1 mmol/L (3.4-5.0); Sodium 138 mmol/L (137-145)
[2024-10-04 14:30] LABS: Parathyroid Intact 18.3 pg/mL (14.5-75.2)
[2024-10-04 15:01] LABS: Total Protein Urine Random 16 mg/dL; Ur Ttl Prot Creatinine Ratio 0.05 mg/mg (0-0.20)
== END 2024-10-04 10:04 | disposition home or self-care (01) ==
LOC: ANHGOSHLAB 10:03
PROVIDERS: PCP Family Medicine; Visit Provider Internal Medicine Nephrology
DX: I12.9 Hypertensive chronic kidney disease with stage 1 through stage 4 chronic kidney disease, or unspecified chronic kidney disease (principal); N18.32 Chronic kidney disease, stage 3b; E11.22 Type 2 diabetes mellitus with diabetic chronic kidney disease; N25.81 Secondary hyperparathyroidism of renal origin; E55.9 Vitamin D deficiency, unspecified
CPT/HCPCS: 36415; 80069; 82306; 82570; 83970; 84156

== ENCOUNTER 2025-02-01 10:28 | Outpatient (CLI) | payer MEDICARE, SELFPAY ==
[2025-02-01 20:02] LABS: Albumin Level 3.4 g/dL (3.5-5.1); Anion Gap 6 mmol/L (4-12); Blood Urea Nitrogen 32 mg/dL (9-20); Calcium 9.1 mg/dL (8.4-10.2); Carbon Dioxide 25 mmol/L (22-30); Chloride 103 mmol/L (98-107); Estimated Glomerular Filt Rate 39; Glucose 116 mg/dL (65-110); Potassium 4.3 mmol/L (3.4-5.0); Sodium 134 mmol/L (137-145)
[2025-02-01 20:30] LABS: Total Protein Urine Random 23 mg/dL
[2025-02-01 21:11] LABS: Ur Ttl Prot Creatinine Ratio 0.05 mg/mg (0-0.20)
== END 2025-02-01 10:29 | disposition home or self-care (01) ==
LOC: ANHGOSHLAB 10:29
PROVIDERS: PCP Family Medicine; Visit Provider Internal Medicine Nephrology
DX: E11.22 Type 2 diabetes mellitus with diabetic chronic kidney disease (principal); I12.9 Hypertensive chronic kidney disease with stage 1 through stage 4 chronic kidney disease, or unspecified chronic kidney disease; N18.32 Chronic kidney disease, stage 3b
CPT/HCPCS: 36415; 80069; 82570; 84156

== ENCOUNTER 2025-02-13 10:54 | Outpatient (CLI) | payer MEDICARE, SELFPAY ==
--- NOTE | ~2025-02-13 | CT_ITS ---
EXAMINATION:CT lung screening DATE: 02/13/2025 11:17 INDICATION: Personal history of nicotine dependence. TECHNIQUE: Computed tomography (CT) of the chest was performed without intravenous contrast. Automated exposure control and iterative reconstruction technique were employed. The dose-length product (DLP) was 338.95 mGy-cm. COMPARISON: Chest CT 11/16/2021 FINDINGS: There is mild emphysema. There are a few scattered nodules in the lungs measuring up to 3 mm. Calcified pulmonary nodules are consistent with old granulomatous disease. There is mild atelectasis bilaterally. No pleural effusion. The heart size is normal. There are coronary artery calcifications. No pericardial effusion. There is a moderate-sized sliding hiatal hernia. There are cysts in the kidneys measuring up to 11.1 cm on the left. There is mild thoracic spondylosis. IMPRESSION: 1. Lung-RADS category 2: Benign appearance or behavior. Continue annual screening with noncontrast low-dose chest CT in 12 months. Reviewed, dictated and finalized at location E. [facility] IMPRESSION: 1. Lung-RADS category 2: Benign appearance or behavior. Continue annual screeni ng with noncontrast low-dose chest CT in 12 months.
== END 2025-02-13 10:55 | disposition home or self-care (01) ==
PROVIDERS: PCP Family Medicine; Visit Provider Nurse Practitioner Family
DX: Z12.2 Encounter for screening for malignant neoplasm of respiratory organs (principal); Z87.891 Personal history of nicotine dependence
CPT/HCPCS: 71271

== ENCOUNTER 2025-02-24 10:56 | Outpatient (CLI) | payer MEDICARE, SELFPAY ==
[2025-02-24 18:43] LABS: Hematocrit 39.6 % (42.0-52.0); Hemoglobin 12.6 g/dL (14.0-18.0); Immature Granulocyte Percent A 0.1 % (0-0.5); Lymphocytes Absolute Auto 1.76 K/mm3 (0.9-3.2); Mean Corpuscular HGB Conc 31.8 g/dl (32-36); Mean Corpuscular Hemoglobin 28.6 pg (26-34); Mean Corpuscular Volume 89.8 fl (80-100); Nucleated Red Blood Cells Absolute Auto 0.000 K/mm3 (0.0-0.012); Nucleated Red Blood Cells Perc 0.0 % (0.0-0.2); Platelet Count Result 220 k/mm3 (150-375); Red Blood Count 4.41 M/mm3 (4.6-6.20); White Blood Count 7.0 K/mm3 (4.5-10.0)
[2025-02-24 18:54] LABS: Alanine Aminotransferase 16 U/L (6-50); Albumin Level 3.4 g/dL (3.5-5.1); Alkaline Phosphatase 74 U/L (38-126); Anion Gap 6 mmol/L (4-12); Aspartate Amino Transferase 41 U/L (17-59); Bilirubin,Total 0.7 mg/dL (0.2-1.3); Blood Urea Nitrogen 29 mg/dL (9-20); Calcium 9.4 mg/dL (8.4-10.2); Carbon Dioxide 27 mmol/L (22-30); Chloride 104 mmol/L (98-107); Cholesterol 111 mg/dL (0-200); Estimated Glomerular Filt Rate 37; Glucose 97 mg/dL (65-110); HDL Direct 49 mg/dL; Potassium 4.3 mmol/L (3.4-5.0); Sodium 137 mmol/L (137-145); Total Protein 6.2 g/dL (6.3-8.2); Triglycerides 46 mg/dL (<150)
[2025-02-24 19:28] LABS: Hemoglobin A1C 5.2 % (<5.7)
[2025-02-24 19:31] LABS: Prostate Specific Antigen 0.4 ng/mL (< OR = 4.0)
== END 2025-02-24 10:57 | disposition home or self-care (01) ==
PROVIDERS: PCP Family Medicine; Visit Provider Nurse Practitioner Family
DX: E78.5 Hyperlipidemia, unspecified (principal); I10 Essential (primary) hypertension; E11.9 Type 2 diabetes mellitus without complications; Z12.5 Encounter for screening for malignant neoplasm of prostate
CPT/HCPCS: 36415; 80053; 80061; 83036; 84153; 85025; G0103